=== PATIENT | male | born 1950 | race Caucasian/White ===

== ENCOUNTER 2022-07-07 14:17 | Observation (INO) | payer OTHER, MEDICARE ==
--- OUTSIDE RECORDS SUMMARY | 2022-07-07 14:22 | XMS REPORT | Continuity of Care Document ---
:1950 Author Organization [facility] t Address [address] [place] [address] Dr. Norie[address] [place] [address] Care Team Providers Name Role Phone Rohan Ge Rubin Primary Care Physician BESSIE COMBS Attending Clinician Unavailable ANAHY CROSS Attending Clinician Unavailable STEFF NGO Attending Clinician Unavailable SEUN FIGUEROA Attending Clinician Unavailable Praveen Roland MD Attending Clinician Jose Juarez MD Attending Clinician Phani Cowan Attending Clinician Jose Juarez Attending Clinician RUSSELL AKINS Attending Clinician Unavailable MICHAEL SHAH Attending Clinician Unavailable Sophia_Sonu Attending Clinician Unavailable Quincy Cortes Attending Clinician [phone] Loni Gonsales Attending Clinician Provider, [facility] Attending Clinician Unavailable LONI BATISTA Attending Clinician Unavailable Doctor Unassigned, [place] Attending Clinician Unavailable JOSE JUAREZ M.D. Attending Clinician Unavailable HEIDY GONZALEZ M.D. Attending Clinician Unavailable ELIEL GONZALEZ M.D. Attending Clinician Unavailable Sophia_Sonu Admitting Clinician Unavailable Payers Payer Name Policy Type Policy Number Effective Date Expiration Date Eloina baugh [facility] MEDICARE [id number] 2020 SUPPLEMENT 00:00:00 MEDICARE PART B [id number] 2019 2019 00:00:00 00:00:00 MEDICARE PART A [id number] 2014 \T\ B 00:00:00 [facility] [id number] 2021 MEDICARE 00:00:00 SUPPLEMENT [place] [id number] 2020 HEALTHCARE/AARP 00:00:00 [place]IC[place]: [id number] 2014 [employer] 00:00:00 [facility] [id number] 2020 OPTIONS (MEDICARE 00:00:00 SUPPLEMENT) Problems Condition Condition Condition Status Onset Resolution Last Treating Co mments Source Name Details Category Date Date Treatment Clinician Date Rhegmatoge Rhegmatoge Disease Active 2021-07 Overview : [facility] nous nous 2-07 [facility] retinal retinal 00:00: g of this detachment detachment 00 note of right of right might be eye eye different from the original. Hx of mac-off RRD repaired 10/[address] Ngo Last Assessmen t & Plan: Formattin g of this note might be different from the original. Stable today on optos/DFE Upcoming appt with Dr. Ngo Adrenal Adrenal Disease Active UT adenoma, adenoma, 8-30 Health right right 00:00: 00 Grief Grief Disease Active UT reaction reaction 5-05 Health 00:00: 00 Wheezing Wheezing Disease Active UT 3-18 Health 00:00: 00 Cough Cough Disease Active UT 3-18 Health 00:00: 00 Anesthesia Anesthesia Disease Active U T of skin of skin 3-18 Health 00:00: 00 Abnormal Abnormal Disease Active UT chest chest 3-18 Health x-ray x-ray 00:00: 00 Ptosis of Ptosis of Disease Active 2020-07 Last UT both both 2-06 Assessmen Health eyelids eyelids 00:00: t & Plan: 00 Formattin g of this note might be different from the original. Refer to garret ptosis / bleph Floppy Floppy Disease Active 2020-07 Last UT eyelid eyelid 2-06 Assessmen Health syndrome syndrome 00:00: t & Plan: 00 Formattin g of this note might be different from the original. Has had sleep apnea diagnosed but is not being treated, d/w pt importanc e of treating sleep apnea for cardiovas cular health he will d/w his PCPContin ue tears, add overnight ointment; if that isn't enough can trial eye burgos/m oisture chamber Pseudophak Pseudophak Disease Active 2020-07 Last U T ia, both ia, both 2-06 Assessmen Hea lth eyes eyes 00:00: t & Plan: 00 Formattin g of this note might be different from the original. 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 01-21 Health 00:00: 00 Low back Low back Disease Active UT pain pain 612 Health 00:00: 00 Left foot Left foot Disease Active UT drop drop 612 Health 00:00: 00 Spinal Spinal Disease Active UT stenosis stenosis 612 Health of lumbar of lumbar 00:00: region region 00 without without neurogenic neurogenic claudicati claudicati on on Scoliosis Scoliosis Disease Active UT 6-12 Health 00:00: 00 Lumbar Lumbar Disease Active 2016-07 UT radiculopa radiculopa 206 He alth thy thy 00:00: 00 Numbness Numbness Disease Active 2016-07 UT and and 2-06 Health tingling tingling 00:00: 00 Spinal Spinal Problem Active 2021-12-05 Willie kang stenosis stenosis 11-25 03:30:39 l in in 00:00: [place] cervical cervical 00 region region (disorder) (disorder) Active 11/26/2015 Problem 12/05/2021 [facility] [place] Apnea Apnea Disease Active UT 07-03 Health 00:00: 00 No known No known Disease Unive rs active active ity of problems problems [facility] History of History of Problem Resolve UT hyperlipid hyperlipid d Ph ysici emia emia ans History of History of Problem Resolve UT hypertensi hypertensi d Ph ysici on on ans Leg Leg Problem Active UT numbness numbness Physic i ans Degenerati Degenerati Problem Active U T ve ve Physici scoliosis scoliosis ans Dream Dream Problem Active UT enactment enactment Phys ici behavior behavior ans Severe Severe Problem Active UT obstructiv obstructiv Ph ysici e sleep e sleep ans apnea apnea Anxiety Anxiety Problem Resolve 2021-12-05 M emoria (finding) (finding) d 03:30:39 l Resolved Иван Problem 12/05/2021 [facility] Hypertensi Hypertens Problem Active 2021-12-05 Memoria ve rachael 03:30:39 l disorder, disorder, Herm marcin systemic systemic arterial arterial (disorder) (disorder) Active Problem 12/05/2021 [facility] [place] Hyperlipid Hyperlipi Problem Active 2021-12-05 Memoria emia demia 03:30:39 l (disorder) (disorder) He rmann Active Problem 12/05/2021 [facility] [place] Gastroesop Gastroeso Problem Active 2021-12-05 Memoria hageal phageal 03:30:39 l reflux reflux [place] disease disease (disorder) (disorder) Active Problem 12/05/2021 [facility] MARCELL [place] Carpal Carpal Problem Active 2021-12-05 Willie kang tunnel tunnel 03:30:39 l syndrome syndrome Jose n (disorder) (disorder) Active Problem 12/05/2021 [facility] [place] Smoker Smoker Problem Active 2021-12-05 Willie kang (finding) (finding) 03:30:39 l Active [place] Problem 12/05/2021 [facility] Numbness Numbness Problem Active 2021-12-05 Memoria of hand of hand 03:30:39 l (finding) (finding) Herm marcin Active Problem 12/05/2021 Bilateral [facility] MARCELL [place] Finding Finding Problem Active 2021-12-05 M emoria relating relating 03:30:39 l to moist to moist Jose n tobacco tobacco use use (finding) (finding) Active Problem 12/05/2021 [facility] [place] Spinal Spinal Problem Active 2021-12-05 Willie kang stenosis stenosis 03:30:39 l of lumbar of lumbar Herm marcin region region (disorder) (disorder) Active [facility] [place] Foot-drop Foot-drop Problem Active 2021-12-05 Memoria (finding) (finding) 03:30:39 l Active [place] Problem 12/05/2021 [facility] 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 detachment detachment 03:30:39 l (disorder) (disorder) He rmann Active Problem 12/05/2021 [facility] R91.1 - R91.1 - Diagnosis Active 2021-11-09 Memoria SOLITARY SOLITARY 14:36:00 l PULMONARY PULMONARY Herm marcin NODULE NODULE R05.9 R05.9 Active [facility] [place] Allergies, Adverse Reactions, Alerts Allergy Allergy Status Severity Reaction(s) Onset Inactive Treating Comm ents Source Name Type Date Date Clinician Penicill Propensi Active Unknown 2020-07 UT ins ty to 2-06 Health adverse 00:00: reaction 00 s Penicill Propensi Active Rash Univer s ins ty to 6-16 ity of adverse 00:00: [place] reaction 00 Medical s Branch PENICILL Drug Active Rash [facility] INS Class 6-16 ity of 00:00: [place] 00 Medical Branch Penicill Allergy Active Other UT ins to drug Physici (finding ans ) PENICILL Allergy Active [place] INS to [place] substanc Urology e penicill penicill Active Mild Memori a ins ins l [place] NO KNOWN Drug Active Univers ALLERGIE Class ity of S [place] [facility] Family History Family Member Diagnosis Comments Start Date Stop Date Source Mother Family history of [facility] Physicians Mother Family history of [facility] Phys icians cerebrovascular accident (CVA) Father Family history of malignant [facility] Physicians neoplasm Father Family history of [facility] Physicians Social History Social Habit Start Date Stop Date Quantity Comments Source History of tobacco Snuff User [facility] use Exposure to 2022-06-13 2022-06-23 Not sure [facility] SARS-CoV-2 (event) 00:00:00 09:12:00 Alcohol intake 2022-06-23 2022-06-23 2.86 /d [facility] 00:00:00 00:00:00 Tobacco use and 2022-03-01 2022-03-01 User of smokeless [facility] exposure 00:00:00 00:00:00 tobacco Cigarette 2021-11-04 2021-11-04 [facility] pack-years 00:00:00 00:00:00 Social History 2014-08-01 2014-08-01 [facility] Mikey sosa 20:41:29 20:41:29 Sex Ass[birth year] At [birth year] M [facility] 00:00:00 00:00:00 Smoking Status Start Date Stop Date Source Tobacco smoking consumption [facility] ealth unknown Ex-smoker (finding) [facility] Never Smoker [place] Milagro Verdugo agustina Occasional tobacco smoker 2022-03-01 00:00:00 [facility] Smokes tobacco daily 2021-11-04 00:00:00 [facility] Medications Ordered Filled Start Stop Current Ordering Indication Dosage Frequency Signature Comments Components Source Medication Medication Date Date Medication? Clinician (SIG) Name Name tamsulosin 2021-07 Yes .4mg QD Take 0.4 UT (Flomax) 2-22 mg by Health 0.4 MG 24 09:22: mouth 1 hr capsule 19 (one) time each day. citalopram 2021-07 Yes QD Take by UT (CeleXA) 20 2-22 mouth 1 Healt h MG tablet 09:22: (one) time 19 each day. methocarbam 2021-07 Yes 500mg Q.25D Take 500 UT ol 2-22 mg by Health (Robaxin) 09:22: mouth 4 500 MG 19 (four) tablet times a day. tamsulosin 2021-07 Yes .4mg QD Take 0.4 UT (Flomax) 2-07 mg by Health 0.4 MG 24 10:11: mouth 1 hr capsule 45 (one) time each day. citalopram 2021-07 Yes QD Take by UT (CeleXA) 20 2-07 mouth 1 Healt h MG tablet 10:11: (one) time 45 each day. methocarbam 2021-07 Yes 500mg Q.25D Take 500 UT ol 2-07 mg by Health (Robaxin) 10:11: mouth 4 500 MG 45 (four) tablet times a day. tamsulosin Yes .4mg QD Take 0.4 UT (Flomax) 8-30 mg by Health 0.4 MG 24 08:50: mouth 1 hr capsule 44 (one) time each day. citalopram 2021-0 Yes QD Take by UT (CeleXA) 20 8-30 mouth 1 Healt h MG tablet 08:50: (one) time 44 each day. methocarbam 2022-0 Yes 500mg Q.25D Take 500 UT ol 8-30 mg by Health (Robaxin) 08:50: mouth 4 500 MG 44 (four) tablet times a day. omeprazole 2022-0 2022- No 10mg QD Take 10 mg UT (PriLOSEC) 5-05 05-05 by mouth [address] He al[address] 17:17: 00:00 (one) time capsule 24 :00 each day. Do not crush or chew. lovastatin 2022-0 2022- No 10mg Take 10 mg UT (Mevacor) 5-05 05-05 by mouth Healt h 10 MG 17:17: 00:00 every tablet 21 :00 night. lisinopril 2022-0 2022- No 10mg QD Take 10 mg UT 10 MG 5-05 05-05 by mouth 1 Health tablet 17:17: 00:00 (one) time 18 :00 each day. gabapentin 2022-0 2022- No [id number] Take by UT (Neurontin) 5-05 05-05 [id number] mouth 3 Health 250 MG/5ML 17:17: 00:00 3D (three) solution 18 :00 times a day. tamsulosin 2022-0 Yes .4mg QD Take 0.4 UT (Flomax) 5-05 mg by Health 0.4 MG 24 13:49: mouth 1 hr capsule 43 (one) time each day. citalopram 2022-0 Yes 10mg QD Take 10 mg U T (CeleXA) 10 5-05 by mouth 1 He alth MG/5ML 13:49: (one) time solution 43 each day. methocarbam 2022-0 Yes 500mg Q.25D Take 500 UT ol 5-05 mg by Health (Robaxin) 13:49: mouth 4 500 MG 43 (four) tablet times a day. tamsulosin 2022-0 Yes .4mg QD Take 0.4 UT (Flomax) 5-05 mg by Health 0.4 MG 24 13:49: mouth 1 hr capsule 43 (one) time each day. citalopram 2022-0 Yes 10mg QD Take 10 mg U T (CeleXA) 10 5-05 by mouth 1 He alth MG/5ML 13:49: (one) time solution 43 each day. methocarbam 2022-0 Yes 500mg Q.25D Take 500 UT ol 5-05 mg by Health (Robaxin) 13:49: mouth 4 500 MG 43 (four) tablet times a day. tamsulosin 2022-0 Yes .4mg QD Take 0.4 UT (Flomax) 5-05 mg by Health 0.4 MG 24 13:49: mouth 1 hr capsule 43 (one) time each day. citalopram 2022-0 Yes 10mg QD Take 10 mg U T (CeleXA) 10 5-05 by mouth 1 He alth MG/5ML 13:49: (one) time solution 43 each day. methocarbam 2022-0 Yes 500mg Q.25D Take 500 UT ol 5-05 mg by Health (Robaxin) 13:49: mouth 4 500 MG 43 (four) tablet times a day. tamsulosin 2022-0 Yes .4mg QD Take 0.4 UT (Flomax) 5-05 mg by Health 0.4 MG 24 13:49: mouth 1 hr capsule 43 (one) time each day. citalopram 2022-0 Yes 10mg QD Take 10 mg U T (CeleXA) 10 5-05 by mouth 1 He alth MG/5ML 13:49: (one) time solution 43 each day. methocarbam 2022-0 Yes 500mg Q.25D Take 500 UT ol 5-05 mg by Health (Robaxin) 13:49: mouth 4 500 MG 43 (four) tablet times a day. omeprazole 2022-0 Yes UT (PriLOSEC) 2-[address] 00:00: capsule 00 lovastatin 2022-0 Yes UT (Mevacor) 2-13 Health 20 MG 00:00: tablet 00 lisinopril 2022-0 Yes UT 20 MG 2-13 Health tablet 00:00: 00 omeprazole 2022-0 Yes UT (PriLOSEC) 2-[address] 00:00: capsule 00 lovastatin 2022-0 Yes UT (Mevacor) 2-13 Health 20 MG 00:00: tablet 00 lisinopril 2022-0 Yes UT 20 MG 2-13 Health tablet 00:00: 00 omeprazole 2022-0 Yes UT (PriLOSEC) 2-[address] 00:00: capsule 00 lovastatin 2021-0 Yes UT (Mevacor) 2-13 Health 20 MG 00:00: tablet 00 lisinopril 2021-0 Yes UT 20 MG 2-13 Health tablet 00:00: 00 omeprazole 2-0 Yes UT (PriLOSEC) 2-[address] 00:00: capsule 00 lovastatin 2021-0 Yes UT (Mevacor) 2-13 Health 20 MG 00:00: tablet 00 lisinopril 2021-0 Yes UT 20 MG 2-13 Health tablet 00:00: 00 omeprazole 2-0 Yes UT (PriLOSEC) 2-[address] 00:00: capsule 00 lovastatin 2021-0 Yes UT (Mevacor) 2-13 Health 20 MG 00:00: tablet 00 lisinopril 2-0 Yes UT 20 MG 2-13 Health tablet 00:00: 00 omeprazole 2-0 Yes UT (PriLOSEC) 2-[address] 00:00: capsule 00 lovastatin 2021-0 Yes UT (Mevacor) 2-13 Health 20 MG 00:00: tablet 00 lisinopril 2021-0 Yes UT 20 MG 2-13 Health tablet 00:00: 00 omeprazole 2-0 Yes UT (PriLOSEC) 2-[address] 00:00: capsule 00 lovastatin 2-0 Yes UT (Mevacor) 2-13 Health 20 MG 00:00: tablet 00 lisinopril 2-0 Yes UT 20 MG 2-13 Health tablet 00:00: 00 citalopram 2020-07 Yes 10mg QD Take 10 mg U T (CeleXA) 10 2-06 by mouth 1 He alth MG/5ML 09:17: (one) time solution 45 each day. methocarbam 2020-07 Yes 500mg Q.25D Take 500 UT ol 2-06 mg by Health (Robaxin) 09:17: mouth 4 500 MG 45 (four) tablet times a day. omeprazole 2020-07 Yes 10mg QD Take 10 mg U T (PriLOSEC) 2-06 by mouth 1 Hea lth [address] 09:17: (one) time capsule 45 each day. Do not crush or chew. gabapentin 2020-07 Yes Q.[id number] Take by UT (Neurontin) 2- [id number] mouth 3 Health 250 MG/5ML 09:13: 3D (three) solution 08 times a day. lovastatin 2020-07 Yes 10mg Take 10 mg U T (Mevacor) 2-06 by mouth Health 10 MG 09:13: every tablet 08 night. tamsulosin 2020-07 Yes QD Take by UT (Flomax) 2-06 mouth 1 Health 0.4 MG 24 09:13: (one) time hr capsule 08 each day. lisinopril 2020-07 Yes 10mg QD Take 10 mg U T 10 MG 2-06 by mouth 1 Health tablet 09:13: (one) time 07 each day. gabapentin 2020-07 Yes UT (Neurontin) 07-03 Health 300 MG 00:00: capsule 00 gabapentin 2020-07 Yes UT (Neurontin) 07-03 Health 300 MG 00:00: capsule 00 gabapentin 2020-07 Yes UT (Neurontin) 07-03 Health 300 MG 00:00: capsule 00 gabapentin 2020-07 Yes UT (Neurontin) 07-03 Health 300 MG 00:00: capsule 00 gabapentin 2020-07 Yes UT (Neurontin) 07-03 Health 300 MG 00:00: capsule 00 gabapentin 2020-07 Yes UT (Neurontin) 07-03 Health 300 MG 00:00: capsule 00 gabapentin 2020-07 Yes UT (Neurontin) 07-03 Health 300 MG 00:00: capsule 00 gabapentin 2020-07 Yes See Memoria 300 mg oral 0-05 Instructio l capsule 13:27: ns, TAKE 1 Herm marcin 00 CAPSULE BY MOUTH TWICE DAILY, # 180 unknown unit, 3 Refill(s), Pharmacy: [facility], 175.26, cm, 12/02/20 9:31:00 CDT, Height, 96.364, kg, 12/02/20 9:31:00 CDT, Weight albuterol Yes [id number] 2{puff} Inhale 2 Univers 90 6-16 Puffs ity of mcg/actuati 00:00: every 6 [place] as on inhaler 00 (six) Medical hours as Branch needed for Wheezing. benzonatate Yes [id number] 100mg Take 1 Univers (TESSALON 6-16 capsule by itglenda of ELIOXdynia) 100 00:00: mouth 3 [place] as mg capsule 00 (three) Medica l times Branch daily. albuterol Yes [id number] 2{puff} Inhale 2 Univers 90 6-16 Puffs ity of mcg/actuati 00:00: every 6 [place] as on inhaler 00 (six) Medical hours as Branch needed for Wheezing. benzonatate Yes [id number] 100mg Take 1 Univers (TESSALON 6-16 capsule by itglenda of ELIOXdynia) 100 00:00: mouth 3 [place] as mg capsule 00 (three) Medica l times Branch daily. albuterol Yes [id number] 2{puff} Inhale 2 Univers 90 6-16 Puffs ity of mcg/actuati 00:00: every 6 [place] as on inhaler 00 (six) Medical hours as Branch needed for Wheezing. benzonatate Yes [id number] 100mg Take 1 Univers (TESSALON 6-16 capsule by itglenda of FELICITAS) 100 00:00: mouth 3 [place] as mg capsule 00 (three) Medica l times Branch daily. albuterol Yes [id number] 2{puff} Inhale 2 Univers 90 6-16 Puffs ity of mcg/actuati 00:00: every 6 [place] as on inhaler 00 (six) Medical hours as Branch needed for Wheezing. benzonatate Yes [id number] 100mg Take 1 Univers (TESSALON 6-16 capsule by [place]) 100 00:00: mouth 3 [place] as mg capsule 00 (three) Medica l times Branch daily. benzonatate 2021- No 100mg Take 100 UT (Tessalon) 6-16 05-05 mg by Health 100 MG 00:00: 00:00 mouth. capsule 00 :00 albuterol 2021- No UT 108 (90 6-16 05-05 Health Base) 00:00: 00:00 MCG/ACT 00 :00 inhaler doxycycline 2020-0 2020- No [id number] 100mg Take 1 Univers hyclate 100 6-16 06-24 tablet by it y of mg tablet 00:00: 04:59 mouth 2 [place] 00 :00 (two) Medical times [place] daily for 7 days. doxycycline 0 1- No [id number] 100mg Take 1 Univers hyclate 100 6-16 06-24 tablet by it y of mg tablet 00:00: 04:59 mouth 2 [place] 00 :00 (two) Medical times [place] daily for 7 days. citalopram 0 Yes Univers 20 mg 5-26 ity of tablet 00:00: [facility] lisinopriL 2020-0 Yes Univers 20 mg 5-26 ity of tablet 00:00: [address] lovastatin 2020-0 Yes Univers 20 mg 5-26 ity of tablet 00:00: [address] omeprazole 2020-0 Yes Univers 20 mg 5-26 ity of capsule 00:00: [address] tamsulosin 0 Yes Univers 0.4 mg 24 5-26 ity of hr capsule 00:00: [address] citalopram 2020-0 Yes Univers 20 mg 5-26 ity of tablet 00:00: [address] lisinopriL 2020-0 Yes Univers 20 mg 5-26 ity of tablet 00:00: [address] lovastatin 2020-0 Yes Univers 20 mg 5-26 ity of tablet 00:00: [address] omeprazole 2020-0 Yes Univers 20 mg 5-26 ity of capsule 00:00: [address] tamsulosin 2020-0 Yes Univers 0.4 mg 24 5-26 ity of hr capsule 00:00: [address] citalopram 2020-0 Yes Univers 20 mg 5-26 ity of tablet 00:00: [address] lisinopriL 2020-0 Yes Univers 20 mg 5-26 ity of tablet 00:00: [address] lovastatin 2020-0 Yes Univers 20 mg 5-26 ity of tablet 00:00: [address] omeprazole 2020-0 Yes Univers 20 mg 5-26 ity of capsule 00:00: [address] tamsulosin 2020-0 Yes Univers 0.4 mg 24 5-26 ity of hr capsule 00:00: [address] citalopram 2020-0 Yes Univers 20 mg 5-26 ity of tablet 00:00: [address] lisinopriL 2020-0 Yes Univers 20 mg 5-26 ity of tablet 00:00: [address] lovastatin 2020-0 Yes Univers 20 mg 5-26 ity of tablet 00:00: [address] omeprazole 2020-0 Yes Univers 20 mg 5-26 ity of capsule 00:00: [address] tamsulosin 2020-0 Yes Univers 0.4 mg 24 5-26 ity of hr capsule 00:00: [address] gabapentin 2020-0 Yes Univers 300 mg 5-23 ity of capsule 00:00: [address] gabapentin 2020-0 Yes Univers 300 mg 5-23 ity of capsule 00:00: [address] gabapentin 2020-0 Yes Univers 300 mg 5-23 ity of capsule 00:00: [address] gabapentin 2020-0 Yes Univers 300 mg 5-23 ity of capsule 00:00: [address] methocarbam Yes 500 mg, Mem oria ol 500 mg 6-02 PO, l oral tablet 14:13: Bedtime, X Иван 00 90 day, # 90 tab, 1 Refill(s), Pharmacy: [facility] gabapentin Yes 300 mg, Willie kang 300 MG Oral 6-02 PO, BID, # l Capsule 14:13: 180 cap, 1 Herm marcin 00 Refill(s), Pharmacy: [facility] gabapentin 2018-07 No 300 mg, Willie kang 300 MG Oral 0-09 PO, BID, # l Capsule 12:52: 180 cap, 2 Herm marcin 15 Refill(s), Pharmacy: [facility] methocarbam 2018-07 No 500 mg, Mem oria ol 500 mg 0-09 PO, l oral tablet 12:52: Bedtime, X [place] 07 90 day, # 90 tab, 2 Refill(s), Pharmacy: [facility] methocarbam No 500 mg, Mem oria ol 500 mg 9-06 PO, l oral tablet 16:02: Bedtime, X [place] 12 90 day, # 90 tab, 2 Refill(s), Pharmacy: [facility] gabapentin No 300 mg, Willie kang 300 MG Oral 9-06 PO, BID, X l Capsule 16:01: 90 day, # Nina nn 59 180 cap, 2 Refill(s), Pharmacy: [facility] gabapentin 2019-0 No 300 mg, Willie kang 300 MG Oral 6-07 PO, BID, X l Capsule 14:04: 30 day, # Nina nn 00 60 cap, 8 Refill(s), Pharmacy: [place] [id number] methocarbam 2019-0 No 500 mg, Mem oria ol 500 mg 6-07 PO, l oral tablet 14:04: Bedtime, X [place] 00 30 day, # 30 tab, 3 Refill(s), Pharmacy: [place] [id number] tamsulosin 2018-0 Yes 0.4 mg, Willie kang 5-30 PO, Daily, l 14:15: 0 Refill(s) Methocarbam 2019-0 Yes 500 mg, Mem oria ol 5-30 PO, PRN l 14:08: gabapentin 2019-0 Yes 300 mg, Willie kang 5-30 PO, PRN, 0 l 14:08: Refill(s) Lisinopril Lisinopril 0 Yes 1 QD TAKE 1 UT 20 MG Oral 20 MG Oral 2-12 TABLET P hysici Tablet Tablet 00:00: DAILY ans 00 albuterol albuterol No albuterol [place] sulfate HFA sulfate HFA sulfate [place] 90 90 HFA 90 Urology mcg/actuati mcg/actuati mcg/actuat on aerosol on aerosol ion inhaler inhaler aerosol inhaler citalopram citalopram No citalopram [place] 20 mg 20 mg 20 mg [place] tablet tablet tablet Urology doxycycline doxycycline No doxycyclin [place] hyclate 100 hyclate 100 e hyclate [place] mg tablet mg tablet 100 mg Uro logy tablet gabapentin gabapentin No gabapentin [place] 300 mg 300 mg 300 mg [place] capsule capsule capsule Urolog y lisinopril lisinopril No lisinopril [place] 20 mg 20 mg 20 mg [place] tablet tablet tablet Urology lovastatin lovastatin No lovastatin [place] 20 mg 20 mg 20 mg [place] tablet tablet tablet Urology omeprazole omeprazole No omeprazole [place] 20 mg 20 mg 20 mg [place] capsule,del capsule,del capsule,de Urology ayed ayed layed release release release tamsulosin tamsulosin No tamsulosin [place] 0.4 mg 0.4 mg 0.4 mg [place] capsule capsule capsule Urolog y Immunizations Ordered Immunization Filled Immunization Date Status Commen ts Source Name Name Influenza, 2021-08-10 [facility], 00:00:00 quadrivalent Influenza, 2021-08-10 Completed [facility] injectable, 00:00:00 quadrivalent Influenza, 2021-08-10 Completed [facility] injectable, 00:00:00 quadrivalent Influenza, 2021-08-10 Completed [facility] injectable, 00:00:00 quadrivalent Influenza, 2021-08-10 Completed [facility] injectable, 00:00:00 quadrivalent Influenza, 2021-08-10 Completed [facility] injectable, 00:00:00 quadrivalent Influenza, 2021-08-10 Completed [facility] injectable, 00:00:00 quadrivalent COVID-19 Moderna 18 2021-03-03 Completed [facility] alth & Over Vaccination 00:00:00 COVID-19 Moderna 18 2021-03-03 Completed [facility] alth & Over Vaccination 00:00:00 COVID-19 Moderna 18 2021-03-03 Completed UT [facility] alth & Over Vaccination 00:00:00 COVID-19 Moderna 18 2021-03-03 Completed [facility] alth & Over Vaccination 00:00:00 COVID-19 Moderna 12 2021-03-03 Completed [facility] alth & Over Vaccination 00:00:00 (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) COVID-19 Moderna 12 2021-03-03 Completed UT He alth & Over Vaccination 00:00:00 (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) COVID-19 Moderna 12 2021-03-03 Completed UT He alth & Over Vaccination 00:00:00 (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) COVID-19, mRNA, COVID-19, mRNA, 2021-03-03 Completed [place] LNP-S, PF, 100 LNP-S, PF, 100 00:00:00 Urolog y mcg/0.5 mL dose mcg/0.5 mL dose [id number] 2020-08-24 Completed Willie rial [id number] 19:07:55 Herm marcin <sup>1, 2</sup> [id number] 2020-08-24 Completed Willie rial [id number] 00:00:00 Herm marcin [id number] 2020-07-25 Completed Willie riaaurelio [id number] 00:00:00 Herm marcin Vital Signs Vital Name Observation Time Observation Value Comments Source Systolic blood 2022-03-01 126 mm[Hg] [facility] pressure 13:51:00 Diastolic blood 2022-03-01 77 mm[Hg] [facility] pressure 13:51:00 Heart rate 2022-03-01 66 /min [facility] 13:51:00 Body temperature 2022-03-[address] [facility] 13:51:00 Body weight 2022-03-01 96.435 [facility] 13:51:00 BMI 2022-03-01 30.95 kg/m2 [facility] 13:51:00 Systolic blood 2021-11-04 128 mm[Hg] [facility] pressure 18:51:00 Diastolic blood 2021-11-04 84 mm[Hg] [facility] pressure 18:51:00 Heart rate 2021-11-04 74 /min [facility] 18:51:00 Body temperature 2021-11-[address] [facility] 18:51:00 Body weight 2021-11-04 96.163 kg [facility] 18:51:00 BMI 2021-11-04 30.86 kg/m2 [facility] 18:51:00 Oxygen saturation 2021-11-04 96 /min [facility] in Arterial blood 18:51:00 by Pulse oximetry BP Diastolic 2021-05-05 78 mm[Hg] [place] [facility] 00:00:00 Urology Height 2021-05-05 69 [in_i] [facility] 00:00:00 Urology BMI (Body Mass 2021-05-05 31 [facility]2 [facility] Urology BP Systolic 2021-05-05 145 mm[Hg] [facility] 00:00:00 Urology Body Weight 2021-05-05 210 [lb_av] [place] [facility] 00:00:00 Urology Systolic blood 2020-12-16 127 mm[Hg] [facility] 15:55:00 [facility] Diastolic blood 2020-12-16 72 mm[Hg] [facility] f pressure 15:55:00 [facility] Heart rate 2020-12-16 83 /min [facility] 15:54:00 [facility] Body temperature 2020-12-[address] [facility] 15:54:00 [facility] Respiratory rate 2020-12-16 18 /min [facility] 15:54:00 [facility] Body height 2020-12-[address] [facility] 15:54:00 [facility] Body weight 2020-12-[address] [facility] 15:54:00 [facility] BMI 2020-12-16 31.00 kg/m2 [facility] 15:54:00 [facility] Oxygen saturation 2020-12-16 96 /min [facility] in Arterial blood 15:54:00 [facility] by Pulse oximetry [place] Systolic (mm Hg) 2021-12-02 [facility] 13[facility]00 Diastolic (mm Hg) 2021-12-02 [facility] 13:55:00 Heart Rate 2021-12-02 [facility] 13:55:00 Respitory Rate 2021-12-02 [facility] 13:55:00 Height 2021-12-02 175.26 cm [facility] 13:55:00 Weight 2021-12-02 [facility] 13:55:00 BMI Calculated 2021-12-02 [facility] 13:55:00 Systolic (mm Hg) 2020-12-02 [facility] 14:18:00 Diastolic (mm Hg) 2020-12-02 [facility] 14:18:00 Heart Rate 2020-12-02 [facility] 14:18:00 Respitory Rate 2020-12-02 [facility] 14:18:00 Height 2020-12-02 175.26 cm [facility] 14:18:00 Weight 2020-12-02 [facility] 14:18:00 BMI Calculated 2020-12-02 [facility] 14:18:00 Systolic (mm Hg) 2019-12-03 [facility] 14:01:00 Diastolic (mm Hg) 2019-12-03 [facility] 14:01:00 Heart Rate 2019-12-03 [facility] 14:01:00 Respitory Rate 2019-12-03 [facility] 14:01:00 Height 2019-12-03 177.8 cm [facility] 14:01:00 Weight 2019-12-03 [facility] 14:01:00 BMI Calculated 2019-12-03 [facility] 14:01:00 BP Systolic 2019-01-21 142 mm[Hg] Location: RUE; [facility] 14:41:00 Position: Sitting BP Diastolic 2019-01-21 81 mm[Hg] Location: RUE; [facility] 14:41:00 Position: Sitting Height 2019-01-21 69.5 [in_us] [facility] 14:41:00 Weight 2019-01-21 214.125 [lb_av] [facility] 14:41:00 Body Mass Index 2019-01-21 31.17 kg/m2 [facility] Calculated 14:41:00 Temperature 2019-01-21 98.1 [degF] Method: Oral [facility] 14:41:00 Heart Rate 2019-01-21 69 /min Location: R [facility] 14:41:00 Brachial Artery; O2 SAT 2019-01-21 99 % Source: RA [facility] 14:41:00 BP Systolic 2018-12-03 136 mm[Hg] Location: RUE; [facility] 14:30:00 Position: Sitting BP Diastolic 2018-12-03 73 mm[Hg] Location: RUE; [facility] 14:30:00 Position: Sitting Height 2018-12-03 69.5 [in_us] [facility] 14:30:00 Weight 2018-12-03 215.375 [lb_av] [facility] 14:30:00 Body Mass Index 2018-12-03 31.35 kg/m2 [facility] Calculated 14:30:00 Temperature 2018-12-03 98.3 [degF] Method: Oral [facility] 14:30:00 Heart Rate 2018-12-03 85 /min Location: R [facility] 14:30:00 Brachial Artery; O2 SAT 2018-12-03 97 % Source: RA [facility] 14:30:00 Systolic (mm Hg) 2018-11-29 [facility] 13:58:00 Diastolic (mm Hg) 2018-11-29 [facility] 13:58:00 Heart Rate 2018-11-29 [facility] 13:58:00 Weight 2018-11-29 [facility] 13:58:00 Height 2018-11-29 175.26 cm [facility] 13:58:00 Respitory Rate 2018-11-29 [facility] 13:58:00 BMI Calculated 2018-11-29 [facility] 13:58:00 BP Systolic 2018-09-28 118 mm[Hg] Location: RUE; [facility] 15:20:00 Position: Sitting BP Diastolic 2018-09-28 70 mm[Hg] Location: RUE; [facility] 15:20:00 Position: Sitting Height 2018-09-28 69.5 [in_us] [facility] 15:20:00 Weight 2018-09-28 212.25 [lb_av] [facility] 15:20:00 Body Mass Index 2018-09-28 30.89 kg/m2 [facility] Calculated 15:20:00 Temperature 2018-09-28 98.5 [degF] Method: Oral [facility] 15:20:00 Heart Rate 2018-09-28 73 /min Location: R [facility] 15:20:00 Brachial Artery; O2 SAT 2018-09-28 97 % Source: [facility] 15:20:00 BP Systolic 2018-08-14 144 mm[Hg] Location: RUE; [facility] 14:20:00 Position: Sitting BP Diastolic 2018-08-14 80 mm[Hg] Location: RUE; [facility] 14:20:00 Position: Sitting Height 2018-08-14 69.5 [in_us] [facility] 14:20:00 Weight 2018-08-14 211 [lb_av] [facility] 14:20:00 Body Mass Index 2018-08-14 30.71 kg/m2 [facility] Calculated 14:20:00 Temperature 2018-08-14 98.3 [degF] Method: Oral [facility] 14:20:00 Heart Rate 2018-08-14 74 /min Location: R [facility] 14:20:00 Brachial Artery; O2 SAT 2018-08-14 98 % Source: RA [facility] 14:20:00 BP Systolic 2017-05-16 126 mm[Hg] Location: LUE; [facility] 08:01:00 Position: Sitting BP Diastolic 2017-05-16 77 mm[Hg] Location: LUE; [facility] 08:01:00 Position: Sitting Height 2017-05-16 69.5 [in_us] [facility] 08:01:00 Weight 2017-05-16 214 [lb_av] [facility] 08:01:00 Body Mass Index 2017-05-16 31.15 kg/m2 [facility] Calculated 08:01:00 Temperature 2017-05-16 97.5 [degF] Method: Oral [facility] 08:01:00 Heart Rate 2017-05-16 75 /min [facility] 08:01:00 Respiration Rate 2017-05-16 14 /min [facility] 08:01:00 Procedures Procedure Date / Time Performing Clinician Source Performed OCT, RETINA - OU - BOTH 2022-06-23 15:34:[facility] OCT, RETINA - OU - BOTH 2021-12-16 13:37:[facility]U - 2021-12-16 13:37:41 [facility] BOTH EYES PTOSIS VISUAL FIELD, 2021-06-21 14:40:37 Garret [facility] LIMITED - OU - BOTH EYES Ore-Ofeoluwatomi CT, abdomen + pelvis, 2021-05-05 00:00:00 [facility] w/wo contrast Urology XR CHEST 2 VW 2020-12-16 17:31:02 Loni Batista [facility] COVID-19 (MOLECULAR 2020-12-16 16:45:00 Loni Batista [facility] NUCLEIC ACID AMPLIFICATION) Polysomnography, sleep 2018-08-14 00:00:00 [facility] staging with 4+ parameters of sleep, attended by a technologist [U] XRAY THORACOLUMBAR 2017-12-12 00:00:00 [facility] SPINE, SCOLIOSIS STUDY (W/ SUPINE AND ERECT) [id number] Physical Therapy 2017-12-12 00:00:00 [facility] [[facility]] EMG 2017-06-07 00:00:00 [facility] MRI Spine lumbar wo 2017-06-07 00:00:00 [facility] contrast [id number] Diagnostic Colonoscopy 2014-07-03 00:00:00 [facility] Carpal Tunnel Surgery 2014-07-03 00:00:00 Royce Humphrey Urology Hernia Repair W/mesh 1990-07-03 00:00:00 Kirill Humphrey Urologglenda History of Carpal tunnel [facility] surgery Colonoscopy [facility] Repair of umbilical [facility] hernia Plan of Care Planned Activity Planned Date Details Comments Source Diagnostic Test 2021-05-05 cytology, urine [facility] Pending 00:00:00 [code = cytology, Urology urine] Diagnostic Test 2021-05-05 culture, urine + [facility] Pending 00:00:00 sensitivity [code = Urology culture, urine + sensitivity] Diagnostic Test 2021-05-05 urinalysis, dipstick [place] [facility] Pending 00:00:00 [code = urinalysis, Urology dipstick] Diagnostic Test 2021-05-05 PSA, total + free, [place] [facility] Pending 00:00:00 serum or plasma Urology [code = PSA, total + free, serum or plasma] Diagnostic Test 2021-05-05 unlisted lab [code = [place] [facility] Pending 00:00:00 unlisted lab] Urology Diagnostic Test 2017-07-11 [UT[facility]] EMG [code = [facility] Pending 00:00:00 [UTP] EMG] Diagnostic Test 2017-07-11 [[facility]] EMG [code = [facility] Pending 00:00:00 [UTP] EMG] Encounters Start End Encounter Admission Attending Care Care Encounter Source Date/Time Date/Time Type Type Clinicians Facility Department ID 2022-06-23 Outpatient [facility] [id number] [place] 08:34:[id number] [facility] 2022-06-15 Outpatient [facility] [id number] [place] 19:05:[id number] [facility] 2022-06-08 Outpatient [facility] [id number] [place] 09:23:[id number] [facility] 2022-06-01 Outpatient [facility] [id number] [place] 09:46:[id number] [facility] 2022-05-31 Outpatient [facility] [id number] [place] 13:51:[id number] [facility] 2021-06-21 Outpatient GARRET, [facility] [id number] [place] 09:30:23 [facility] 2021-06-21 Outpatient [facility] [id number] [place] 07:43:[address] [facility] 2021-06-07 Outpatient GARRET, [facility] [id number] [place] 10:50:51 [facility] AT[facility] 2021-05-14 Outpatient TAY [facility] [id number] [place] 08:23:17 [facility] 2022-12-22 2022-12-22 Outpatient HUBER, [facility] [id number] [place] 09:30:00 09:30:00 STEFF moody 2022-12-02 2022-12-02 Outpatient [facility] [id number] [facility] 09:15:00 09:15:00 06 aurelio Oates 2022-06-23 2022-06-23 Office HUBER, [facility] 6400 [id number] [place] 09:30:00 13:07:13 Visit STEFF ISLAS [id number] Health [id number] [id number] 2022-06-23 2022-06-23 Outpatient [facility] [id number] [place] 09:20:00 12:57:22 Health 2022-06-23 2022-06-23 Outpatient HUBER, [facility] [id number] [place] 08:15:00 08:15:00 STEFF Murillo 2022-06-08 2022-06-08 Office TAY CESILIA 6400 [id number] [place] 10:00:00 15:34:00 Visit ANAHY ISLAS [id number] Health [id number] [id number] 2022-03-31 2022-03-31 Outpatient FIGUEROA, [facility] [id number] [place] 13:00:00 13:00:00 [facility] 2022-03-01 2022-03-01 Office CESILIA Roland [id number] [place] 09:00:00 09:54:58 Visit Praveen SHEARER [id number] He alth [place] 9.2.7.2.686 MULTI [id number] SPECIALTY 2 2021-12-17 2021-12-17 Telephone CESILIA Juarez [id number] [place] 00:00:00 00:00:00 Jose SHEARER [id number] He alth [place] 9.2.7.2.686 MULTI [id number] SPECIALTY 6 2021-12-172021-12-17 Telephone CESILIA Juarez [id number] [place] 00:00:00 00:00:00 Jose SHEARER [id number] He alth [place] 9.2.7.2.686 MULTI [id number] SPECIALTY 6 2021-12-16 2021-12-16 Office Huber, [facility] 6400 [id number] [place] 08:00:00 09:10:[address] [id number] Health [id number] [id number] 2021-12-02 2021-12-03 Outpatient nullFlavo MNA [id number] [facility] 14:00:00 04:59:59 r Neurology 05 l Erika Oates 2021-12-02 2021-12-02 Outpatient CORTES CowanMISCHER MHMISCHER [id number] 09:00:00 23:59:59 Phani Delia Tejada 2021-12-02 2021-12-02 Outpatient MHIE MHIE [id number] [facility] 09:00:00 09:00:00 05 l Иван 2021-11-09 2021-11-10 Outpt Diag nullFlavo [facility] [id number] Mem[facility] 19:26:00 04:59:00 Services r [facility] 2021-11-09 2021-11-09 Outpatient Obey, MHOIP MHOIP [id number] 14:26:00 23:59:00 Jose Suhail Antoine 2021-11-04 2021-11-04 Office CESILIA Juarez [id number] [place] 13:40:00 14:26:51 Visit Jose SHEARER [id number] Bhanu mccollum [place] 9.2.7.2.686 MULTI [id number] SPECIALTY 6 2021-10-21 2021-10-21 Office Huber, [facility] 6400 [id number] [place] 09:00:00 10:17:[address] [id number] Health 9.2.7.2.686 [id number] 2021-10-07 2021-10-07 Office CESILIA Ngo 6400 [id number] [place] 08:00:00 08:15:00 Visit Steff ISLAS [id number] Health 9.2.7.2.686 [id number] 2021-09-30 2021-09-30 Office CESILIA Ngo 6400 [id number] [place] 09:45:00 15:56:50 Visit Steff ISLAS [id number] Health 9.2.7.2.686 [id number] 2021-07-09 2021-07-09 Outpatient Madonna AKINS, [facility] [id number] [facility] 13:40:00 13:56:56 RUSSELL mulligan [facility] 2021-07-09 2021-07-09 Outpatient Madonna SHAH [facility] [id number] [facility] 13:40:00 13:40:00 MICHAEL puentes [facility] 2021-06-21 2021-06-21 Office CESILIA Combs 6400 [id number] [place] 08:30:00 09:29:[address] [id number] Health atomi 9.2.7.2.686 [id number] 2021-06-21 2021-06-21 Office CESILIA Combs 6400 [id number] [place] 08:30:00 09:29:17 Visit Celestino ISLAS [id number] Health atomi 9.2.7.2.686 [id number] 2021-06-14 2021-06-14 Outpatient Goldfarb_D [facility] [id number] [place] 12:41:00 12:41:00 [id number] [facility] 2021-05-18 2021-05-18 Outpatient Goldfarb_D U [facility] [id number] [place] 09:52:00 09:52:00 [id number] [facility] 2021-05-14 2021-05-14 Outpatient Goldfarb_D [facility] [id number] [place] 10:45:00 10:45:00 [id number] [facility] 2021-05-06 2021-05-06 Outpatient Goldfarb_D HMU [facility]U [id number] [place] 11:49:00 11:49:00 [id number] [facility] 2021-05-05 2021-05-05 Outpatient Goldfarb_D [facility] [id number] [place] 10:58:00 10:58:00 [id number] [facility] 2021-05-05 2021-05-05 Quincy [facility] [place] - [id number] Mikey hale 00:00:00 00:00:00 Milagro Leslie: [address] [place], [place] [address] , Ph. 2021-05-05 2021-05-05 Outpatient Sophia, [facility] [id number] 00:00:00 00:00:00 Quincy Krishnamurthy [id number] 2021-02-15 2021-02-15 Outpatient Goldfarb_D [facility] U [id number] [place] 11:26:00 11:26:00 [id number] [facility] 2021-02-08 2021-02-08 Outpatient Goldfarb_D [facility] U [id number] [place] 10:11:00 10:11:00 [id number] [facility] 2020-12-16 2020-12-16 [facility] [id number] Univers 11:45:00 23:59:00 Encounter Loni Crocker 350.1.13.10 ity of [place] 4.2.7.2.686 [facility] [id number] [facility] [address] 2020-12-16 2020-12-16 Urgent Provider, [facility] 1.2.840.114 [id number] Univers 10:21:38 11:55:32 Care Loni Batista [id number] ity of [place] 4.2.7.2.686 Andrew as Professio [id number] [address] Office [address] 2020-12-16 2020-12-16 Outpatient R FÁTIMA, [facility] [id number] Univers 10:20:00 10:20:00 LONI ity of [facility] 2020-12-16 2020-12-16 Letter Doctor ERIC [id number] Univers 00:00:00 00:00:00 (Out) Unassigned, CHANTEL [id number] ity of [place] [facility] 4.2.7.2.686 Andrew as [id number] [address] 2020-12-16 2020-12-16 Letter Doctor ERIC [id number] [id number] Univers 00:00:00 00:00:00 (Out) Unassigned, CHANTEL 350.1.13.10 ity of [place] [facility] 4.2.7.2.686 Andrew as [id number] [address] 2020-12-02 2020-12-03 Outpatient nullFlavo MNA [id number] [facility] 14:00:00 04:59:59 r Neurology 04 l Erika Oates 2020-12-02 2020-12-02 Outpatient JONATHAN CowanSCHER CORTESMISCHER [id number] 09:00:00 23:59:59 Phani Tejada 2020-12-02 2020-12-02 Ambulatory nullFlavo MNA [id number] [facility] 14:00:00 14:00:00 Pre-Reg r Neurology 03 l Erkia Oates 2020-12-02 2020-12-02 Outpatient MHIE MHIE [id number] [facility] 09:00:00 09:00:00 04 aurelio Oates 2020-12-02 2020-12-02 Outpatient MHIE MHIE [id number] [facility] 09:00:00 09:00:00 03 aurelio Oates 2020-12-02 2020-12-02 Outpatient JONATHAN CowanSCHER MHMISCHER [id number] 09:00:00 09:00:00 Phani 03 Terrell 2019-12-03 2019-12-04 Outpatient nullFlavo MNA [id number] [facility] 14:00:00 04:59:59 r Neurology 02 aurelio [place] Иван 2019-12-03 2019-12-03 Outpatient Chapo, MHMISCHER MHMISCHER [id number] 09:00:00 23:59:59 Phani 02 Terrell 2019-12-03 2019-12-03 Outpatient MHIE MHIE [id number] [facility] 09:00:00 09:00:00 02 aurelio Oates 2019-07-04 2019-07-04 [facility] [id number] [place] 13:00:00 13:00:00 t; JOSE JUAREZ Physi ci JUSTIN, M.D. ans M.D. 2019-01-21 2019-01-21 [id number] [place] 14:40:00 14:40:00 t; JOSE JUAREZ lty Physi Stephanie Hines M.D. 2018-12-03 2018-12-03 [id number] [place] 14:40:00 14:40:00 t; JOSE JUAREZ lty - Physi Stephanie Hines M.D. 2018-11-29 2018-11-30 Outpatient nullFlavo MNA [id number] [facility] 14:00:00 04:59:59 r Neurology 01 aurelio Erika Oates 2018-11-29 2018-11-29 Outpatient Chapo, MHMISCHER MHMISCHER [id number] 09:00:00 23:59:59 Phani 01 Terrell 2018-11-29 2018-11-29 Outpatient MHIE MHIE [id number] [facility] 09:00:00 09:00:00 01 aurelio Oates 2018-09-28 2018-09-28 CESILIA [place]roy [id number] [place] 15:40:00 15:40:00 t; JOSE JUAREZ [place] [facility] JUSTIN, M.D. ans M.D. 2018-08-14 2018-08-14 CESILIA [place] [id number] [place] 14:20:00 14:20:00 t; JOSE JUAREZ [facility] Stephanie HUDSON M.D. 2017-12-12 2017-12-12 CESILIA Beaulieu [facility] [id number] [place] 11:00:00 11:00:00 t; HEIDY GONZALEZ Orthopedics Hiro grijalva M.D. 2017-11-29 2017-11-29 Outpatient [facility] [id number] [facility] 09:00:00 09:00:00 00 [place] 2017-08-08 2017-08-08 [facility] [id number] [place] 13:30:00 13:30:00 t; HEIDY GONZALEZ Physici SHAH-NAWAZ M.D. ans, M.D. 2017-07-11 2017-07-[address] [facility] [id number] [place] 14:30:00 14:30:00 t; Stephanie JULIAN ans SUUR, M.D. 2017-05-16 2017-05-16 Barbara GONZALEZ [facility] Neurology [id number] [place] 08:00:00 08:00:00 t; Stephanie JULIAN ans SUUR, M.D. Results Test Description Test Time Test Comments Results Result Comments Source COVID-19 (MOLECULAR TESTING 2020-12-17 04:19:19 NUCLEIC ACID AMPLIFICATION) Test Item Value Reference Range Interpretation Comme nts SARS-CoV-2 NAAT (test code = Not Detected Not Detected 19154-2) MARIEL (test code = MARIEL) [employer] SARS-CoV-2 Assay is a nucleic acid amplification test intended for the qualitative detection of RNA from SARS-CoV-2 from nasopharyngeal (DATA CENTER ARCHITECT) specimens. ?It is used under Emergency Use Authorization (EUA) by FDA. A positive result is indicative of the presence of SARS-CoV-2 RNA. ?Clinical correlation with patient history and other diagnostic information is necessary to determine patient infection status. A negative (Not Detected) result does not preclude SARS-CoV-2 infection. ?Clinical correlation with patient history and other diagnostic information should be used in patient management decisions. Invalid: Unable to generate a valid test result on this specimen. ?Please submit a new specimen for repeat testing if clinically indicated. Lab Interpretation (test code = Normal 04185-2) [facility] [id number] 17:42:55HISTORY: Cough for 4 weeks. TECHNIQUE: 2 PA and one lateral views of the chest are obtained. No priorchest study available for comparison. FINDINGS: Mild generalized obstructive lung disease is suspected. Smallcalcified granulomas seen in the right upper lung. Lateral view showed 9 mmnodule projected over one of the middle thoracic vertebral bodies. Minimalfibrosis noted in the lingula segment. No acute pneumonia detected. No pneumothorax or pleural effusion orpulmonary congestion. Cardiothoracic ratio of approximately 15.8/36.8 cm isconsistent with normal cardiac size. Probable small hiatal hernia. CONCLUSIONS:1. No signs of acute cardiopulmonary disease.2. 9 mm soft tissue nodule is seen visibleonly in the lateral view,projected over one of the middle thoracic vertebral bodies. Exact etiologyis uncertain, therefore, noncontrast enhanced CT scan of the chestrequested.[facility], Radiant Results InftUser - 12/16/2020 12:43 PM CDT HISTORY: Cough for 4 weeks.TECHNIQUE: 2 PA and one lateral views of the chest are obtained. No priorchest study available for comparison.FINDINGS: Mild generalized obstructive lung disease is suspected. Smallcalcified granulomas seen in the right upper lung. Lateral view showed 9 mmnodule projected over one of the middle thoracic vertebral bodies. Minimalfibrosis noted in the lingula segment.No acute pneumoniadetected. No pneumothorax or pleural effusion orpulmonary congestion. Cardiothoracic ratio of approximately 15.8/36.8 cm isconsistent with normal cardiac size. Probable small hiatal hernia.CONCLUSIONS:1. No signs of acute cardiopulmonary disease.2. 9 mm soft tissue nodule is seen visible only in the lateral view,projected over one of the middle thoracic vertebral bodies. Exact etiologyis uncertain, therefore, noncontrast enhanced CT scan of the chestrequested.[facility][U] XRAY THORACOLUMBAR SPINE, SCOLIOSIS STUDY (W/ SUPINE AND ERECT) [id number] 11:25:00Images acquired, not reported on this accession number.[facility] Sp[facility] lumbar wo contrast [id number] 10:47:00Exam: MRI lumbar spine without contrast.INDICATION: Radiculopathy. Left leg muscle atrophy, left foot numbness,bilateral leg cramps.COMPARISON: None.TECHNIQUE: Multiecho multiplanar MR sequences of the lumbar spine are obtainedwithout gadolinium.Discussion: Lowest fully formed disc will be designated as L5-S1.Rotatory leftward curvature of the lumbar spine is present.T12-L1: Annular bulge without canal stenosis or nerve root compression.Right-sided foraminal stenosis encroaching upon the exiting nerve root.L1-L2: Right foraminal disc protrusion combined with advanced right-sided facetarthropathy causes severe right foraminal stenosis compressing the exitingnerve root. No canal stenosis. Mild left foraminal stenosis.L2-L3: Annular bulge without canal stenosis. Right lateral recess stenosisencroaching upon the descending right L3 nerve root. Bilateral facetarthropathy. Bilateral foraminal stenosisencroaching upon the exiting rightnerve roots.L3-L4: Disc is collapsed. Annular bulge and advanced facet arthropathy causesevere canal stenosis compressing the cauda equina. Bilateral foraminalstenosiswith compression of the exiting right L3 nerve root. Grade 1anterolisthesis of L3 on L4.L4-L5: Disc is decreased in height. Grade 1 anterolisthesis of L4 on L5.Annular bulge and bilateral facet arthropathy encroaching upon the descendingL5 nerve roots in the lateral recesses. No canal stenosis. Bilateral foraminalstenosis, severe on the left with compression of the exiting left L4 nerveroot.L5-S1: Disc is decreased in height. Annular bulge and bilateral facetarthropathy encroach upon the descending S1 nerve roots in the lateralrecesses. No canal stenosis. 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
--- NOTE | 2022-07-07 15:03 | RAD REPORT ---
EXAM DESCRIPTION: CT - Head Brain Wo Cont - 07/07/2022 2:57 pm CLINICAL HISTORY: Syncope, recurrent Headache, drowsiness, COMPARISON: No comparisons TECHNIQUE: All CT scans are performed using dose optimization technique as appropriate and may inclu de automated exposure control or mA/KV adjustment according to patient size. FINDINGS: No intracranial hemorrhage, hydrocephalus or extra-axial fluid collection.Mild brain atrop hy.No areas of brain edema or evidence of midline shift. The paranasal sinuses and mastoids are clear. The calvarium is intact. IMPRESSION: No acute intracranial abnormality.
--- NOTE | 2022-07-07 15:09 | RAD REPORT ---
EXAM DESCRIPTION: RAD - Chest Single View - 07/07/2022 3:05 pm CLINICAL HISTORY: syncope Chest pain. COMPARISON: No comparisons FINDINGS: Portable technique limits examination quality. The lungs are grossly clear. The heart is upper limit of normal in size. No displaced fractures. IMPRESSION: No acute intrathoracic process suspected.
[2022-07-07 15:44] LABS: Absolute Lymphocytes (CBC) 0.9 K/uL (0.7-4.9); Lymphocytes % 7.1 % (15.3-44.8); MCV 90.5 fL (80-100); MPV 7.5 fL (7.6-11.3); RBC Red Blood Cell Count 4.86 M/uL (4.33-5.43)
[2022-07-07 15:45] LABS: Protime INR 1.1
[2022-07-07 16:08] LABS: Albumin 3.6 g/dL (3.4-5.0); Bilirubin Direct 0.2 mg/dL (0-0.2); Magnesium 1.9 mg/dL (1.6-2.4); Potassium 3.9 mmol/L (3.5-5.1); Protein, Total 6.8 g/dL (6.4-8.2); Thyroid Stimulating Hormone 0.628 uIU/mL (0.358-3.740); Troponin High Sensitivity 6.1 pg/mL (<58.9)
--- NOTE | 2022-07-07 16:09 | RAD REPORT ---
EXAM DESCRIPTION: US - CP - 07/07/2022 3:58 pm CLINICAL HISTORY: DIZZINESS Headache, drowsiness COMPARISON: No comparisons TECHNIQUE: Real-time sonographic evaluation of both carotid systems was performed. Doppler interroga tion was performed with waveform tracing bilaterally. FINDINGS: Normal high resistance waveforms are noted in both external carotid arteries. The common c arotid arteries and internal carotid arteries show normal low resistance waveforms. Moderate hard plaque is seen right carotid bulb. Visually this results in a 50% stenosis based NASCET criteria. Peak systolic and end diastolic velocity values and the ICA/CCA ratios are in the non-hemo dynamically significant range. Right vertebral artery nonvisualized. Forward flow seen left vertebral artery. IMPRESSION: Moderate hard plaque is seen right carotid bulb. Visually, 50% stenosis based on NASCET criteria suspected at this level. No hemodynamically significa nt stenosis evident.
[2022-07-07] MEDS ORDERED: ASPIRIN 81 MG CHEWABLE TABLET ONE (16:16)
[2022-07-07 17:17] LABS: Urine Blood 2+ (Negative); Urine Glucose Negative (Negative); Urine Protein Negative (Negative); Urine Specific Gravity 1.015 (1.005-1.030); Urine pH 6.5 (5.0-7.0)
[2022-07-07 17:37] LABS: Urine Bacteria None Seen /HPF (<20); Urine Mucus Slight /HPF (None Seen)
[2022-07-07] MEDS ORDERED: POTASSIUM 25 MEQ EFFERV TAB ONE (17:43)
--- NOTE | 2022-07-07 17:48 | EDPHYS ---
Physician Documentation [facility] Name: Frandy Martin Age: 71 yrs Sex: Male : 1950 Arrival Date: 07/07/2022 Time: 14:26 Bed 20 Private MD: ED Physician Sreekanth Oh HPI: 07/07 14:59 This 71 yrs old Male presents to ER via Unassigned with complaints of Dizziness. snw 14:59 The patient presents with dizziness, feeling faint, generalized weakness. Onset: The snw symptoms/episode began/occurred suddenly, just prior to arrival. Context: occurred outdoors, occurred while the patient was loading limbs in the truck. Modifying factors: The symptoms are alleviated by nothing, the symptoms are aggravated by standing up. Associated signs and symptoms: Pertinent positives: diaphoresis, nausea. Severity of symptoms: At their worst the symptoms were moderate severe in the emergency department the symptoms have improved mildly. two other episode in the past month, both other times were upon entering [facility]. sees Dr. Madrigal. Historical: - Allergies: 15:02 PENICILLINS; db - PMHx: 15:02 Hypertensive disorder; db - Immunization history:: Adult Immunizations up to date, Client reports receiving the 2nd dose of the Covid vaccine. - Social history:: Smoking status: unknown. ROS: 14:56 ENT: Negative for injury, pain, and discharge, Neck: Negative for injury, pain, and snw swelling, Cardiovascular: Negative for chest pain, palpitations, and edema, Abdomen/GI: Negative for abdominal pain, vomiting, diarrhea, and constipation, +nausea 14:56 Back: Negative for injury and pain, : Negative for injury, bleeding, discharge, and swelling, MS/Extremity: Negative for injury and deformity. 14:56 Constitutional: Positive for fatigue, malaise. 14:56 Eyes: Positive for alternating focus left to right, nystagmus?. 14:56 Respiratory: Positive for shortness of breath. 14:56 Skin: Positive for diaphoresis. 14:56 Neuro: Positive for dizziness, near syncope, visual changes, pt states this is the third episode in about 2 months. Exam: 14:53 Head/Face: Normocephalic, atraumatic. Eyes: Pupils equal round and reactive to light, snw extra-ocular motions intact. Lids and lashes normal. Conjunctiva and sclera are non-icteric and not injected. Cornea within normal limits. Periorbital areas with no swelling, redness, or edema. ENT: Nares patent. No nasal discharge, no septal abnormalities noted. Tympanic membranes are normal and external auditory canals are clear. Oropharynx with no redness, swelling, or masses, exudates, or evidence of obstruction, uvula midline. Mucous membranes moist. Neck: Trachea midline, no thyromegaly or masses palpated, and no cervical lymphadenopathy. Supple, full range of motion without nuchal rigidity, or vertebral point tenderness. No Meningismus. Chest/axilla: Normal chest wall appearance and motion. Nontender with no deformity. No lesions are appreciated. Cardiovascular: Regular rate and rhythm with a normal S1 and S2. No gallops, murmurs, or rubs. Normal PMI, no JVD. No pulse deficits. Respiratory: Lungs have equal breath sounds bilaterally, clear to auscultation and percussion. No rales, rhonchi or wheezes noted. No increased work of breathing, no retractions or nasal flaring. Abdomen/GI: Soft, non-tender, with normal bowel sounds. No distension or tympany. No guarding or rebound. No evidence of tenderness throughout. Back: No spinal tenderness. No costovertebral tenderness. Full range of motion. MS/ Extremity: Pulses equal, no cyanosis. Neurovascular intact. Full, normal range of motion. 14:53 Constitutional: The patient appears alert, anxious, diaphoretic, pale, uncomfortable. 14:53 Skin: Appearance: Moisture: diaphoretic. 14:53 Neuro: Orientation: is normal, Mentation: is normal, Sensation: is normal, Abnormal movements: there are no abnormal movements. Vital Signs: 14:35 BP 140 / 84; Pulse 76; Resp 16; Temp 98.6; Pulse Ox 100% ; Weight 96.16 kg; Height 5 db ft. 10 in. (177.80 cm); Pain 0/10; 15:00 BP 132 / 74; Pulse 76; Resp 18; Pulse Ox 100% on R/A; db 17:00 BP 153 / 85; Pulse 69; Resp 18; Pulse Ox 97% on R/A; db 18:20 BP 141 / 86 Supine; Pulse 70; db 18:22 BP 149 / 86; Pulse 73; db 18:24 BP 158 / 89 Standing; Pulse 76; db 19:20 BP 139 / 83; Pulse 69; Resp 19; Pulse Ox 99% ; Pain 0/10; j7 20:30 BP 164 / 92; Pulse 68; Resp 16; Pulse Ox 99% ; Pain 0/10; jj7 21:32 BP 149 / 74; Pulse 75; Resp 18; Pulse Ox 99% ; Pain 0/10; 7 22:29 BP 132 / 75; Pulse 71; Resp 20; Pulse Ox 97% ; j7 23:30 BP 124 / 68; Pulse 68; Resp 16; Pulse Ox 100% ; Pain 0/10; 7 07/08 00:43 BP 117 / 74; Pulse 68; Resp 17; Pulse Ox 99% ; 7 07/07 14:35 Body Mass Index 30.42 (96.16 kg, 177.80 cm) db NIH Stroke Scale Scores: 07/07 14:53 NIHSS Score: 0 snw MDM: 14:26 Patient medically screened. snw 14:59 Differential diagnosis: cardiac arrhythmia, GI bleed, hypovolemia, near-syncope, TIA, snw vertigo. Data reviewed: vital signs, nurses notes. Data interpreted: Pulse oximetry: on room air is 100 %. Interpretation: normal. 07/07 14:27 Order name: Basic Metabolic Panel; Complete Time: 16:20 snw 07/07 14:27 Order name: CBC with Diff; Complete Time: 16:01 snw 07/07 14:27 Order name: LFT's; Complete Time: 16:20 snw 07/07 14:27 Order name: Magnesium; Complete Time: 16:20 snw 07/07 14:27 Order name: NT PRO-BNP; Complete Time: 16:20 snw 07/07 14:27 Order name: PT-INR; Complete Time: 16:01 snw 07/07 14:27 Order name: Troponin HS; Complete Time: 16:20 snw 07/07 14:27 Order name: XRAY Chest (1 view); Complete Time: 15:14 snw 07/07 14:28 Order name: Phosphorus; Complete Time: 16:20 snw 07/07 14:28 Order name: TSH; Complete Time: 16:20 snw 07/07 17:08 Order name: Urine Culture snw 07/07 17:08 Order name: Urine Microscopic Only; Complete Time: 17:39 snw 07/07 17:17 Order name: Urine Dipstick-Ancillary; Complete Time: 17:21 EDMS 07/07 19:28 Order name: SARS RAPID; Complete Time: 11:19 bb 07/07 14:27 Order name: EKG; Complete Time: 14:28 snw 07/07 14:28 Order name: Cardiac monitoring; Complete Time: 16:26 snw 07/07 14:28 Order name: EKG - Nurse/Tech; Complete Time: 16:26 snw 07/07 14:28 Order name: IV Saline Lock; Complete Time: 15:31 snw 07/07 14:28 Order name: Labs collected and sent; Complete Time: 15:32 snw 07/07 14:28 Order name: O2 Per Protocol; Complete Time: 16:26 snw 07/07 14:28 Order name: O2 Sat Monitoring; Complete Time: 16:26 snw 07/07 14:28 Order name: CT Head Brain wo Cont; Complete Time: 15:05 snw 07/07 14:53 Order name: US Carotid Artery Bilateral; Complete Time: 16:20 snw 07/07 17:08 Order name: Urine Dipstick-Ancillary (obtain specimen); Complete Time: 17:19 snw 07/07 17:08 Order name: Orthostatics; Complete Time: 18:26 snw EC:39 Rate is 70 beats/min. Rhythm is regular. T waves are Normal. Clinical impression: NSR snw w/ Non-specific ST/T Changes. Administered Medications: 16:22 CANCELLED (not available): Phenergan (promethazine) 12.5 mg IM once snw 16:26 Drug: Aspirin Chewable Tablet 324 mg Route: PO; db 17:58 Drug: Potassium \T\ Sodium Phosphates Packet 280 mg-160 mg-250 mg 1 packets Route: PO; db 18:26 Follow up: Response: No adverse reaction db Disposition: 16:50 Co-signature as Attending Physician, Sreekanth ESCUDERO was immediately available on-site ms3 in the Emergency Department for consultation in the care of the patient. Disposition Summary: 07/07/22 17:47 Hospitalization Ordered Hospitalization Status: Observation snw Provider: Madrigal, Ge snw Location: Telemetry/MedSurg (observation) snw Condition: Stable snw Problem: an acute exacerbation snw Symptoms: have improved snw Bed/Room Type: Standard snw Room Assignment: 413(07/07/22 22:56) cg Diagnosis - Syncope Near snw Forms: - Medication Reconciliation Form snw - SBAR form snw NIH Stroke Scale - NIH Stroke Score Date: 07/07/2022 Time: 14:53 Total Score = 0 1a. Level of Consciousness (LOC) - 0(Alert) 1b. Level of Consciousness (LOC) (Month \T\ Age) - 0(Both) 1c. LOC Commands (Open \T\ Closes Eyes/National Account Representative) - 0(Both) 2. Best Gaze (Lateral Gaze Paresis) - 0(Normal) 3. Visual Field Loss - 0(No visual loss) 4. Facial Palsy - 0(Normal) 5a. Left Arm: Motor (10-second hold) - 0(No drift) 5b. Right Arm: Motor (10-second hold) - 0(No drift) 6a. Left Leg: Motor (5-second hold - always test supine) - 0(No drift) 6b. Right Leg: Motor (5-second hold - always test supine) - 0(No drift) 7. Limb Ataxia (finger/nose \T\ heel/bernstein - test with eyes open) - 0(Absent) 8. Sensory Loss (pinprick arms/legs/face) - 0(Normal) 9. Best Language: Aphasia (description/naming/reading) - 0(No aphasia) 10. Dysarthria (speech clarity - read or repeat words) - 0(Normal) 11. Extinction and Inattention (visual/tactile/auditory/spatial/personal) - 0(No abnormality) Initials: snw Signatures: Dispatcher [employer] EDMS Komal Lee, TIRE MECHANIC-C TIRE MECHANIC-Csnw Kassidy Zhang, RN RN cg Sreekanth Oh DO DO ms3 Nuha Fuller RN RN db Corrections: (The following items were deleted from the chart) 16:22 14:28 Phenergan (promethazine) 12.5 mg IM once ordered. snw snw 22:56 17:47 snw cg
--- NOTE | 2022-07-07 17:48 | ER ---
Nurse's Notes [facility] Name: Frandy Martin Age: 71 yrs Sex: Male : 1950 Arrival Date: 07/07/2022 Time: 14:26 Bed 20 Private MD: Diagnosis: Syncope Near Presentation: 07/07 14:35 Initial Sepsis Screen: Does the patient meet any 2 criteria? No. Patient's initial db sepsis screen is negative. Does the patient have a suspected source of infection? No. Patient's initial sepsis screen is negative. Risk Assessment: Do you want to hurt yourself or someone else? Patient reports no desire to harm self or others. Onset of symptoms was July 07, 2022. 14:35 Acuity: MAURILIO 2 db 14:40 Chief complaint: EMS states: Patient became dizzy and diaphoretic and pale while trying db to put something in the back of his truck. States has had these similar symptoms but was able to calm down. states felt like was going to pass out had chest "burning" and palpitations. Denies pain. Calm upon arrival and no longer diaphoretic. Coronavirus screen: Vaccine status: Patient reports receiving the 2nd dose of the covid vaccine. Client denies travel out of the [place] in the last 14 days. At this time, the client does not indicate any symptoms associated with coronavirus-19. Ebola Screen: Patient negative for fever greater than or equal to 101.5 degrees Fahrenheit, and additional compatible Ebola Virus Disease symptoms Patient denies exposure to infectious person. Patient denies travel to an Ebola-affected area in the 21 days before illness onset. No symptoms or risks identified at this time. 14:40 Method Of Arrival: EMS: [facility] db Triage Assessment: 15:02 General: Appears in no apparent distress. comfortable, Behavior is calm, cooperative, db appropriate for age. Pain: Denies pain. Complains of pain in chest. Historical: - Allergies: 15:02 PENICILLINS; db - PMHx: 15:02 Hypertensive disorder; db - Immunization history:: Adult Immunizations up to date, Client reports receiving the 2nd dose of the Covid vaccine. - Social history:: Smoking status: unknown. Screenin:00 [facility] ED Fall Risk Assessment (Adult) History of falling in the last 3 months, db including since admission No falls in past 3 months (0 pts). Abuse screen: Denies threats or abuse. Denies injuries from another. Nutritional screening: No deficits noted. Tuberculosis screening: No symptoms or risk factors identified. Assessment: 15:00 Reassessment: Patient appears in no apparent distress at this time. Patient is alert, db oriented x 3, equal unlabored respirations, skin warm/dry/pink. General: Appears in no apparent distress. comfortable, Behavior is calm, cooperative, appropriate for age. Neuro: Reports dizziness. 15:00 Cardiovascular: Reports diaphoresis, lightheadedness, Chest pain "BURNING" SENSATION db ACROSS CHEST. 16:30 Reassessment: Patient appears in no apparent distress at this time. Patient and/or db family updated on plan of care and expected duration. Pain level reassessed. Patient is alert, oriented x 3, equal unlabored respirations, skin warm/dry/pink. PATIENT AMBULATORY TO THE RESTROOM. STEADY GATE. NAD. DENIES DIZZINESS DENIES NAUSEA Patient states feeling better. Patient states symptoms have improved. General: Appears in no apparent distress. comfortable, Behavior is calm, cooperative, appropriate for age. Pain: Denies pain. Neuro: No deficits noted. Level of Consciousness is awake, alert, obeys commands, Oriented to person, place, time, situation. Cardiovascular: No deficits noted. Respiratory: No deficits noted. GI: No deficits noted. No signs and/or symptoms were reported involving the gastrointestinal system. : No deficits noted. No signs and/or symptoms were reported regarding the genitourinary system. EENT: No deficits noted. No signs and/or symptoms were reported regarding the EENT system. Derm: No deficits noted. No signs and/or symptoms reported regarding the dermatologic system. Musculoskeletal: No deficits noted. No signs and/or symptoms reported regarding the musculoskeletal system. 17:38 Reassessment: Patient appears in no apparent distress at this time. No changes from db previously documented assessment. Patient and/or family updated on plan of care and expected duration. Pain level reassessed. Patient is alert, oriented x 3, equal unlabored respirations, skin warm/dry/pink. Patient states symptoms have improved. 18:24 Reassessment: Patient appears in no apparent distress at this time. No changes from db previously documented assessment. Patient and/or family updated on plan of care and expected duration. Pain level reassessed. Patient is alert, oriented x 3, equal unlabored respirations, skin warm/dry/pink. 19:20 Reassessment: ASSUMED CARE OF PT. PT SITTING UP IN BED. NO PAIN OR DISTRESS NOTED .VS jj7 STABLE. CALL UREÑA IN REACH. NO NEEDS AT THIS TIME. 22:00 Reassessment: PT SWITCHED IN TO A HOSPITAL BED FOR COMFORT. VS STABLE. LIGHTS TURNED jj7 OFF .WARM BLANKETS PROVIDED. CALL UREÑA IN REACH. NO NEEDS AT THIS TIME. 07/08 00:41 Reassessment: PT SLEEPING COMFORTABLY IN BED. VS STABLE. CALL UREÑA IN REACH. SIDE RAILS jj7 UP X2. Vital Signs: 07/07 14:35 BP 140 / 84; Pulse 76; Resp 16; Temp 98.6; Pulse Ox 100% ; Weight 96.16 kg; Height 5 db ft. 10 in. (177.80 cm); Pain 0/10; 15:00 BP 132 / 74; Pulse 76; Resp 18; Pulse Ox 100% on R/A; db 17:00 BP 153 / 85; Pulse 69; Resp 18; Pulse Ox 97% on R/A; db 18:20 BP 141 / 86 Supine; Pulse 70; db 18:22 BP 149 / 86; Pulse 73; db 18:24 BP 158 / 89 Standing; Pulse 76; db 19:20 BP 139 / 83; Pulse 69; Resp 19; Pulse Ox 99% ; Pain 0/10; jj7 20:30 BP 164 / 92; Pulse 68; Resp 16; Pulse Ox 99% ; Pain 0/10; jj7 21:32 BP 149 / 74; Pulse 75; Resp 18; Pulse Ox 99% ; Pain 0/10; jj7 22:29 BP 132 / 75; Pulse 71; Resp 20; Pulse Ox 97% ; jj7 23:30 BP 124 / 68; Pulse 68; Resp 16; Pulse Ox 100% ; Pain 0/10; jj7 07/08 00:43 BP 117 / 74; Pulse 68; Resp 17; Pulse Ox 99% ; jj7 07/07 14:35 Body Mass Index 30.42 (96.16 kg, 177.80 cm) db Vitals: 07/07 18:24 Cardiac Rhythm Assessment Regular Sinus rhythm. db NIH Stroke Scale Scores: 14:53 NIHSS Score: 0 snw ED Course: 14:26 Patient arrived in ED. snw 14:26 Sreekanth Oh DO is Attending Physician. snw 14:26 Komal Lee FNP-C is PHCP. snw 14:35 Arm band placed on right wrist. Patient placed in an exam room. db 14:57 Nuha Fuller, RN is Primary Nurse. db 14:58 CT Head Brain wo Cont In Process Unspecified. EDMS 15:02 Triage completed. db 15:06 XRAY Chest (1 view) In Process Unspecified. EDMS 15:13 Inserted saline lock: 20 gauge in left antecubital area, using aseptic technique. Blood ll1 collected. 15:32 Basic Metabolic Panel Sent. bc6 15:32 CBC with Diff Sent. bc6 15:32 LFT's Sent. bc6 15:32 Magnesium Sent. bc6 15:32 NT PRO-BNP Sent. bc6 15:32 PT-INR Sent. bc6 15:32 Troponin HS Sent. bc6 15:32 Initial lab(s) drawn, by me, sent to lab. Inserted saline lock: 20 gauge in right bc6 antecubital area, using aseptic technique. 15:59 US Carotid Artery Bilateral In Process Unspecified. EDMS 17:00 Patient has correct armband on for positive identification. Bed in low position. Call db light in reach. Side rails up X 1. 17:00 Client placed on continuous cardiac and pulse oximetry monitoring. NIBP monitoring db applied. Warm blanket given. 17:00 No provider procedures requiring assistance completed. db 17:19 Urine Culture Sent. bc6 17:19 Urine Microscopic Only Sent. bc6 17:20 Urine collected: clean catch specimen. bc6 17:47 Ge Madrigal MD is Hospitalizing Provider. snw 19:41 SARS RAPID Sent. as7 01/ 00:49 Patient admitted, IV remains in place. jj7 Administered Medications: 07/07 16:22 CANCELLED (not available): Phenergan (promethazine) 12.5 mg IM once snw 16:26 Drug: Aspirin Chewable Tablet 324 mg Route: PO; db 17:58 Drug: Potassium \\T\\ Sodium Phosphates Packet 280 mg-160 mg-250 mg 1 packets Route: PO; db 18:26 Follow up: Response: No adverse reaction db Medication: 17:00 VIS not applicable for this client. db Outcome: 17:47 Decision to Hospitalize by Provider. snw 07/08 00:48 Admitted to Med/surg accompanied by nurse, via wheelchair, room 413, Report called to joaquina ACEVEDO RN Condition: stable 01:22 Patient left the ED. joaquina NIH Stroke Scale - NIH Stroke Score Date: 07/07/2022 Time: 14:53 Total Score = 0 1a. Level of Consciousness (LOC) - 0(Alert) 1b. Level of Consciousness (LOC) (Month \\T\\ Age) - 0(Both) 1c. LOC Commands (Open \\T\\ Closes Eyes/[employer]) - 0(Both) 2. Best Gaze (Lateral Gaze Paresis) - 0(Normal) 3. Visual Field Loss - 0(No visual loss) 4. Facial Palsy - 0(Normal) 5a. Left Arm: Motor (10-second hold) - 0(No drift) 5b. Right Arm: Motor (10-second hold) - 0(No drift) 6a. Left Leg: Motor (5-second hold - always test supine) - 0(No drift) 6b. Right Leg: Motor (5-second hold - always test supine) - 0(No drift) 7. Limb Ataxia (finger/nose \\T\\ heel/bernstein - test with eyes open) - 0(Absent) 8. Sensory Loss (pinprick arms/legs/face) - 0(Normal) 9. Best Language: Aphasia (description/naming/reading) - 0(No aphasia) 10. Dysarthria (speech clarity - read or repeat words) - 0(Normal) 11. Extinction and Inattention (visual/tactile/auditory/spatial/personal) - 0(No abnormality) Initials: snw Signatures: Dispatcher [employer] EDMS Komal Lee, WELDING SPECIALIST-C WELDING SPECIALIST-Csnw Eagle Chen RN RN llStephany Arce RN RN jj7 Benton, Danielle, RN RN db Senkyrik, Autumn as7 [place]son, Breana bc6
[2022-07-07] MEDS ORDERED: POTASS/SODIUM PHOSPHATE 1 PKT POWD.PACK ONE (17:56)
[2022-07-07 19:58] LABS: SARS-CoV-2 Antigen Rapid Res Negative (Negative)
[2022-07-08] MEDS ORDERED: ACETAMINOPHEN 500 MG TAB PO PRN (01:05)
--- NOTE | 2022-07-08 01:42 | HP ---
Date of Admission: 07/08/2022 Chief Complaint: Nausea, dizziness, sweating, and chest pain. History Of Present Illness: This is a 71-year-old male patient who had 3 episodes of nausea, dizzine ss and sweating in last 1 month and today's episode was worst episode and he came into emergency room . After he was evaluated, he was admitted to the hospital. The patient reports that today he was lo ading and unloading some heavy loads in the back of his truck and after working for about 10 to 15 mi nutes, all of a sudden he started to feel dizzy, felt like he was getting nauseated and he was sweati ng a lot. Subsequently, he started to have some burning type of chest pain right across the chest. With all these complaints, he was brought into emergency room and after he was evaluated, he was admi tted to the hospital. He had 2 prior episodes of similar nature. Denies any headache. No blurred v ision or double vision. No loss of eyesight. After the patient was evaluated in the emergency room, he was admitted to the hospital. Physical Examination: Vital Signs: Temperature , pulse , respiratory rate , blood pressure _ , oxygen saturation , height , and weight . General: Awake, alert, oriented, not in distress. HEENT: Head atraumatic, normocephalic. Conjunctivae nonerythematous. Sclerae white. Mouth, no thr ush or edema noted. Ears/Nose, no mass, lesion, discharge noted. Neck: Supple. No JVD, lymph nodes, bruit, thyromegaly noted. Lungs: Bilateral good equal air entry. Clear to auscultation. No rhonchi. No rales. Heart: Normal heart sounds, no murmur or gallop. Abdomen: Soft, bowel sounds normal. No guarding, rigidity, tenderness, mass, hepatosplenomegaly, dis tention, or bruit noted. Extremities: No leg edema. No calf tenderness. Skin: No rash, ulcer, cellulitis. Lymphatics: No lymph node enlargement in neck, supraclavicular, infraclavicular region. Neuro: No focal neurological deficit. Chest: Unremarkable. External Genitalia: Deferred. Rectal: Deferred. Laboratory Data: White count 11.9, hemoglobin 15.3, and platelets 211. Sodium 139, potassium 3.9, c hloride 109, bicarb 25, BUN 15, creatinine 1.31, and glucose 114. Liver function tests unremarkable. Phosphorus low at 2. Troponin level 6.1. TSH 0.628. CAT scan of the head was negative for any ac rincon intracranial changes. Chest x-ray with no acute cardiopulmonary changes noted. Carotid Doppler shows plaquing of the carotid revealing approximately 50% stenosis of the right carotid. EKG with no acute changes. Impression: 1.Chest pain. 2.Dizziness. 3.Hypertension. 4.Hyperlipidemia. Plan: We will go ahead and admit the patient to hospital for further evaluation and management of th is problem. We will get serial cardiac enzymes. Consult Cardiology. Consult Neurology. Continue h ome medications per order. We will get echo with Doppler tomorrow and Lexiscan stress test tomorrow and plan of treatment discussed with the patient. DVT prophylaxis will be given per order. I will s ee him tomorrow morning for followup. PACO/MODL Voice ID: [id number]
[2022-07-08 01:56] VITALS: BMI 30.9
[2022-07-08 03:54] LABS: Absolute Lymphocytes (CBC) 1.7 K/uL (0.7-4.9); Lymphocytes % 23.5 % (15.3-44.8); MCV 91.1 fL (80-100); MPV 7.3 fL (7.6-11.3); RBC Red Blood Cell Count 4.61 M/uL (4.33-5.43)
[2022-07-08 04:11] LABS: Potassium 3.6 mmol/L (3.5-5.1); Troponin High Sensitivity 6.1 pg/mL (<58.9)
[2022-07-08] MEDS: PANTOPRAZOLE 40MG TABLET PO SCH (05:09)
[2022-07-08] MEDS ORDERED: REGADENOSON 0.4 MG/5 ML SYR IV ONE (07:50)
[2022-07-08] MEDS ORDERED: PNEUMOCOCCAL VACCINE 0.5 ML IMVAC ONE ×2 (08:00→21:00)
[2022-07-08] MEDS: CITALOPRAM 10 MG TABLET PO SCH (10:01)
[2022-07-08] MEDS: TAMSULOSIN 0.4 MG SR CAP PO SCH (10:01)
[2022-07-08] MEDS: lisinopriL 20 MG TAB PO SCH (10:01)
[2022-07-08] MEDS ORDERED: LORAZEPAM 1 MG TABLET PO ONE (13:55)
--- NOTE | 2022-07-08 14:22 | RAD REPORT ---
EXAM DESCRIPTION: NM - Rest Stress Cardiac Imaging - 07/08/2022 2:12 pm CLINICAL HISTORY: Chest pain COMPARISON: Portable chest 07/07/2022 TECHNIQUE: The patient was administered 10.7 mCi of Tc 99m Sestamibi prior to resting SPECT imaging of the heart. The patient was then administered 29.6 mCi of Tc 99m Sestamibi following exercise or ph armacologic stress. Multiplanar SPECT images were reviewed. FINDINGS: The end diastolic volume is 134 ml, the end systolic volume is 47 ml, and the ejection fra ction is 65 %. Moderately large area of fixed perfusion abnormality is seen in the inferior wall from base to apex. No clearly ischemic component seen. This could be scarring, attenuation artifact or a combination. No stress-induced ischemic changes seen. IMPRESSION: No stress-induced ischemic changes confirmed on this study. Moderately large inferior wall fixed perfusion abnormality from base to apex could be scarring, diaph ragmatic attenuation artifact or a combination. End-diastolic volume is enlarged slightly at 134 mL. Ejection fraction is well within normal limits a t 65%.
--- NOTE | 2022-07-08 17:46 | RAD REPORT ---
EXAM DESCRIPTION: MRI - MRA Neck W/Wo Cont - 07/08/2022 5:23 pm CLINICAL HISTORY: CVA, syncope COMPARISON: MRI brain same date, CT head 07/07/2022 TECHNIQUE: MR angiography of the cervical vasculature performed. Coronal imaging plane acquisition u tilized. A 20 MultiHance contrast volume was utilized. Coronal reformatted images were generated and reviewed. Vertical axis 3D rotational projections obtained using maximum intensity projection protoco l. FINDINGS: No stenosis or focal abnormality at the great vessel origins. Bilateral subclavian arterie s are unremarkable. No stenosis seen at the origin of the codominant vertebral arteries. No significa nt or suspicious vertebral finding. Vertebrobasilar vasculature is tortuous. Bilateral common carotid arteries show mild tortuosity but no focal abnormalities. The left bulb and left ICA show no suspicious findings. Prominent plaquing changes are present at the right carotid bul b creating a approximately 50% stenosis. More distally the internal carotid artery shows prominent to rtuosity but no focal stenosis. No dissection changes are present. IMPRESSION: Irregular plaquing changes in the right carotid bulb with approximately 50% stenosis. Additional nonacute or non clinically significant findings detailed in the body of the report.
--- NOTE | 2022-07-08 17:49 | RAD REPORT ---
EXAM DESCRIPTION: MRI - Brain W/Wo Cont - 07/08/2022 5:23 pm CLINICAL HISTORY: syncope COMPARISON: Head Brain Wo Cont dated 07/07/2022 TECHNIQUE: Sagittal and axial T1-weighted images were obtained. Axial PD/heavily T2-weighted and T2- FLAIR images were obtained along with axial DWI/ADC mapping sequences. Coronal heavily T2 weighted s equence obtained. Axial and coronal post-contrast T1-weighted images were also obtained. A 20 ml Mul tihance contrast following utilized. FINDINGS: No intracranial hemorrhage, mass or acute infarction. There is no edema or shift of midli ne structures. No extra-axial fluid collections. Yee-matter/white matter junction is preserved. Sig nal voids are seen as a normal finding in the major intracranial vessels. No significant atrophy or c hronic ischemic change seen. Ventricles are normal in size. Post-contrast images show normal enhancement. No dural thickening. Mastoid air cells and paranasal sinuses are clear. No globe or orbital content suspicious finding. IMPRESSION: No acute or subacute infarction changes. No acute intracranial process identifiable.
--- NOTE | 2022-07-08 17:56 | RAD REPORT ---
EXAM DESCRIPTION: MRI - MRA Head Wo Cont - 07/08/2022 5:23 pm CLINICAL HISTORY: Syncope, CVA COMPARISON: MRI brain same date TECHNIQUE: MR angiography of the cervical vasculature performed. Coronal imaging plane acquisition u tilized. A MultiHance contrast volume was utilized. Coronal reformatted images were generated and re viewed. Vertical axis 3D rotational projections obtained using maximum intensity projection protocol. FINDINGS: No aneurysm or vascular malformation identified. No named branch occlusion, dissection, or vasculitis. Right posterior communicating artery is present with very small or absent right BEEF GRINDER P1 s egment. Right posterior cerebral artery is small and not well visualized relative to the left posteri or cerebral artery. This may be due to the more diminished flow through the posterior communicating a rtery. There are no acute or chronic manifestations of CVA in the right BEEF GRINDER distribution. Vertebrobasilar tortuosity is present without focal abnormality. No basilar artery significant findin g. IMPRESSION: Right posterior cerebral artery is very small in size along its entire course with its e ntire or primary supply via the right posterior communicating artery. This is a normal anatomic variation. The diminished appearance to the right BEEF GRINDER may be technical. The re are no manifestations of right BEEF GRINDER distribution acute or chronic ischemia. Remainder the examination is without significant finding.
--- NOTE | 2022-07-08 19:42 | CON ---
Reason For Consultation: Consultation called because of dizziness. History Of Present Illness: Mr. Martin is a 71-year-old right-handed patient with hype rtension who comes to [facility] with history of 3 similar episodes of vertigo with nausea, generalized weakness, and feeling faint. The most recent episode brought him into the hospital. He said it occurred on the day of this admission and that was the longest. He actually was loading some items onto his truck. He was bending and lifting up and putting items in the truck when after stand ing up, he felt as though the world was spinning and moving around. He felt nauseated, had generaliz ed weakness, and had to hold on to prevent from falling. He also had a burning sensation across his chest. He denies any focal findings such as face, arm, or leg weakness or numbness or seizure-like a ctivity, which may be shaking, tongue biting, or loss of bowel and bladder control. He came to [facility] and had an evaluation including head CT scan at 02:28. That CT scan showed no acute i schemic or hemorrhagic findings and his arrival time in the emergency room was 226. He was not consi dered to be a patient having a stroke and his NIH Stroke Scale was 0. He was evaluated for myocardia l infarction and admitted for cardiac workup. His complete blood count with differential was unremar kable. INR 1.1. Chemistries unremarkable except for mild dehydration with creatinine 1.31 and after hydration today is 0.93. Liver function studies were normal. Thyroid function panel was normal. C alcium and magnesium unremarkable. Urinalysis is unremarkable. COVID testing was negative. Chest x -ray revealed no acute cardiopulmonary processes. A carotid artery ultrasound showed moderate hard p laque in the right carotid bulb without hemodynamically significant stenosis. A cardiac imaging nucl ear medicine stress test revealed no stress-induced ischemia. There was a moderately large inferior wall fixed perfusion abnormality from base to apex, which could be scarring, diaphragmatic attenuatio n, artifact, or a combination. Ejection fraction was around 65%. Past Medical History: Hypertension. Allergies: PENICILLIN. Family History: Noncontributory. Social History: Occasional alcohol. No tobacco use. Review of Systems: As noted, the patient has had a total of 3 similar episodes in 2 months. At 1 episode he was in the grocery store and came out, was unsteady on his feet, held on to the grocery cart for a while and as he got out to his truck, he looked over at the car that was about 80 feet away and the car was moving back and forth in his vision. He was eventually able to drive home after that event subsided about 30 seconds later. Physical Examination: Vital Signs: Blood pressure 145/91, pulse 68, respiratory rate 16, temperature 97.6, and oxygen satu ration 100% on room air. Weight 212 pounds, height 5 feet 9 inches 0.5 inches BMI 30.9. General: Mr. Martin is resting comfortably. He is in no significant distress. HEENT: He is normocephalic, atraumatic. His sclerae are anicteric. Oropharynx pink and moist. Neck: Supple. Chest: Clear. Heart: Regular. Extremities: No clubbing, cyanosis, or edema. Neurologic: He has no cranial nerves or no focal motor, coordination, sensory, or gait deficits. Re flexes are 1 to 2+ and symmetric. Gait: He has good stance and stride. Assessment: Mr. Martin is a 71-year-old patient with repeated vertiginous episodes and hypertens ion. His head CT scan shows no significant abnormalities. Vascular evaluation is not significant at this point. Plan: 1.He should perform the Duglas maneuver as is appropriate. 2.Continue with lisinopril for hypertension. 3.He also has Flomax for prostatic hypertrophy. 4.He should be on folic acid 1 mg daily. 5.After discharge, follow up in Dr. Garcia's clinic within the month. CLARICE/PRANAY Voice ID: [id number] Report ID: [id number]
--- NOTE | 2022-07-08 19:56 | CON ---
Date of Consultation: 07/08/2022 Reason For Consultation: Chest pain and dizziness. History Of Present Illness: A 71-year-old male who has history of dizziness, nausea, and episodes of chest pain, presented to the emergency room. No further chest pain is present. Patient felt that t hings are spinning around and feels also inability to focus, but denies having any neurological focal deficits. There is no exertional chest pain. No shortness of breath. Past Medical History: Hypertension. Medications: Refer to reconciliation sheet for detailed list. Allergies: PENICILLIN. Family History: No premature coronary artery disease or cancer. Social History: He does not smoke or drink. Does not use any drugs. Review of Systems: All systems reviewed are negative except mentioned in HPI. Physical Examination: Vital signs: Reviewed. Head and Neck: Pupils are equal, reactive to light. Intact eye movements. No JVD. No cyanosis. Neck: Supple. Thyroid is not enlarged. Lungs: Clear to auscultation bilaterally. No rhonchi, wheezing, or crackles. No accessory muscle u se. Heart: Regular rate and rhythm. No extra sounds. Abdomen: Soft, nontender. Bowel sounds positive. No organomegaly. No masses or hernia. No rigidi ty or rebound. Extremities: No clubbing, cyanosis. Intact pulses. Skin: No rash. Neurologic: Alert, awake, oriented x3. No acute focal deficits appreciated. Investigations: BUN is 15, creatinine 0.93, and hemoglobin is 14.6. Assessment And Recommendations: 1.Chest pain. It is atypical. Cardiac enzymes have been negative and stress test is negative. Thi s is not cardiac in etiology. Await on the echocardiogram. 2.Hypertension. Blood pressure is slightly elevated on lisinopril. Re-assess in the morning. Adju st medications if needed. 3.Dizziness. Worrisome for possible cerebellar cerebrovascular accident. An MRI is recommended. SR/MODL Voice ID: [id number] Report ID: [id number]
[2022-07-09 05:56] VITALS: O2SAT 98
[2022-07-09] MEDS: PANTOPRAZOLE 40MG TABLET PO SCH (06:35)
[2022-07-09 09:09] VITALS: BP 147/84; TEMP 97.2
[2022-07-09] MEDS: TAMSULOSIN 0.4 MG SR CAP PO SCH (09:37)
[2022-07-09] MEDS: lisinopriL 20 MG TAB PO SCH (09:37)
[2022-07-09] MEDS: CITALOPRAM 10 MG TABLET PO SCH (09:37)
--- NOTE | 2022-07-09 09:45 | DS ---
Date of Discharge: 07/09/2022 Disposition: Discharged to go home. Physical Examination: HEENT: Unremarkable. Lungs: Clear to auscultation. Heart: Sounds normal. Abdomen: Soft. Bowel sounds normal. No guarding, rigidity, tenderness, or distention. Extremities: No leg edema. Neuro: No focal neurological deficits. Laboratory Data: Upon admission: Sodium 139, potassium 3.9, chloride 109, bicarb 25, BUN 15, creati nine 1.31, glucose 114. Liver function tests unremarkable. Troponin 6.1 on the first set and second set. Yesterday: Sodium 139, potassium 3.6, chloride 106, bicarb 27, BUN 15, creatinine 0.93, gluco se 112. Upon admission: White count was 11.9, hemoglobin 15.3, platelets 211. Yesterday, white cou nt 7.3, hemoglobin 14.6, platelets 207. Chest x-ray was negative. CAT scan of the head was negative for any acute intracranial changes. MRA of neck shows irregular plaquing involving right carotid bu lb with approximately 50% stenosis Lexiscan stress test, no stress-induced ischemia. MRA of the head shows right posterior cerebral artery is very small in size along with its entire or primary supply, via right posterior communicating artery and there is no evidence of any ischemia in this distributi on. MRI of brain was negative for any acute intracranial changes. No evidence of stroke. Carotid D oppler shows moderate hard plaquing in the right carotid bulb. Discharge Medications: Continue all prior home medication. Discharge Instructions: 1.Come to my office for fasting blood test this coming week and after blood test is done, he should start taking atorvastatin 40 mg daily at bedtime and this prescription will be sent to [facility] and once you start atorvastatin, you should stop lovastatin at that time. 2.Follow up at my office week after next. Hospital Course: This is a 71-year-old male patient, who came into emergency room with complaints of dizziness, nausea, sweating, and chest pain. Please see dictated H and P for more information. Aft er patient was evaluated in the emergency room, he was admitted to the hospital. His MN was ruled ou t. Cardiology and Neurology consultation were requested and details were discussed with Dr. Garcia yesterday and his stroke was ruled out and his presentation of dizziness associated with other sympt om is likely due to underlying vertigo type of problem. MN was ruled out and carotid Doppler and MRA has shown approximately 50% stenosis of the right carotid artery and findings of all these test resu lts reviewed with the patient today. He takes lovastatin at home and I have asked him to discontinue that and start atorvastatin, but prior to starting atorvastatin, he will get fasting lipid profile d one at the office. He was advised to change position slowly, keep himself well hydrated, and I will see him at office for followup in the near future. Final Diagnoses: 1.Chest pain. 2.Dizziness. 3.Benign positional vertigo. 4.Hypertension. 5.Hyperlipidemia. 6.Right-sided carotid artery stenosis. PACO/MODL Voice ID: [id number] Report ID: [id number]
--- NOTE | 2022-07-09 17:25 | PN ---
Date of Progress Note: 07/08/2022 Subjective: The patient was seen this morning for followup. Denies any headache, nausea, vomiting. No chest pain. Objective: Vital Signs: Reviewed. HEENT: Unremarkable. Lungs: Clear to auscultation. Heart: Sounds normal. Abdomen: Soft. Bowel sounds normal. No guarding, rigidity, tenderness, distention. Extremities: No leg edema. Neuro: No focal neurological deficits. Laboratory Data: White count 12.3, hemoglobin 14.6, platelets 207. Sodium 139, potassium 3.6, chlor rima 106, bicarb 27, BUN 15, creatinine 0.93 glucose 112. Impression: 1.Chest pain. 2.Dizziness. 3.Hypertension. 4.Hyperlipidemia. Plan: We will go ahead and continue current medications. Follow up with office messenger helper and neurologis t, consultation was requested and we will follow up with these 2 physicians and see what their recomm endation is. The patient will have MRI of brain done today. We will also have stress test and echoc ardiogram. Details of plan of treatment discussed with him. PACO/MODL Voice ID: [id number] Report ID: [id number]
--- NOTE | 2022-07-09 17:43 | EKG ---
Test Date: 2022-07-07 Test Time: 14:42:33 Loop Tender: BCW MEASUREMENT RESULTS: Intervals: Rate: 70 SD: 184 QRSD: 88 QT: 408 QTc: 440 Switchback: P: 48 SD: 184 QRS: -4 T: 25 INTERPRETIVE STATEMENTS: Normal sinus rhythm Normal ECG No previous ECG available for comparison Electronically Signed On 07-09-22 17:40:26 PICKER OPERATOR by Yoshi Galvan
--- NOTE | 2022-07-11 06:51 | ECHO ---
HEIGHT: 5 ft 9.5 in WEIGHT: 212 lb 4 oz DATE OF STUDY: 07/08/[address]: Komal Goncalves CHLORINE CELLS OPERATOR-BC 2-DIMENSIONAL: YES M.MODE: YES DOPPLER: YES COLOR FLOW: YES TDS: PORTABLE: YES DEFINITY: BUBBLE STUDY: DIAGNOSIS: NEAR SYNCOPE CARDIAC HISTORY: CATHERIZATION: NO SURGERY: NO PROSTHETIC VALVE: NO PACEMAKER: NO MEASUREMENTS (cm) DIASTOLIC (NORMALS) SYSTOLIC (NORMALS) IVSd 1.1 (0.6-1.2) LA Diam 2.6 (1.9-4.0) LVEF 55-60% LVIDd 5.1 (3.5-5.7) LVIDs 3.8 (2.0-3.5) %FS 27% LVPWd 1.1 (0.6-1.2) Ao Diam 3.0 (2.0-3.7) 2 DIMENSIONAL ASSESSMENT: RIGHT ATRIUM: NORMAL LEFT ATRIUM: NORMAL RIGHT VENTRICLE: NORMAL LEFT VENTRICLE: NORMAL TRICUSPID VALVE: NORMAL MITRAL VALVE: MILD MITRAL REGURGITATION PULMONIC VALVE: NORMAL AORTIC VALVE: MILD AORTIC INSUFFICIENCY PERICARDIAL EFFUSION: NONE AORTIC ROOT: NORMAL LEFT VENTRICULAR WALL MOTION: NORMAL DOPPLER/COLOR FLOW: SEE BELOW COMMENTS: 1. NORMAL LEFT VENTRICULAR EJECTION FRACTION 55-60% 2. NORMAL WALL MOTION 3. MILD MITRAL REGURGITATION 4. MILD AORTIC INSUFFICIENCY 5. MILD TRICUSPID REGURGITATION TECHNOLOGIST: MUNA HAINES
--- NOTE | 2022-07-11 06:55 | TREADPHA ---
DX: CHEST PAIN Date of Study: 07/08/2022 Ht: 5' 9.5 " Wt: 212 lb 4 oz Consulting Physician: KAVYA MEDICATIONS: CELEXA, PRINIVIL, TYLENOL, FLOMAX HISTORY: 71 YEAR OLD MALE WITH COMPLAINTS OF DIZZINESS. HISTORY OF HYPERTENSION PHYSICIAL EXAMINATION: RESTING B.P.: 160/98 RESTING H.R.: 71 RESTING EKG: NORMAL SINUS RHYTHM, WITHIN NORMAL LIMITS PROTOCOL: PHARMACOLOGIC EXERCISE TIME: 3:30 B.P. AT PEAK STRESS: 153/85 IMPRESSION: LEXISCAN INJECTED. CARDIOLITE INJECTED - SEE NUCLEAR MEDICINE REPORT. NO CHEST PAIN REPORTED. NO SUPRAVENTRICULAR TACHYCARDIA, VENTRICULAR TACHYCARDIA, PREMATURE VENTRICULAR COMPLEXES OR PREMATURE ATRIAL COMPLEXES NOTED. PATIENT STATES FEELING SICK TO STOMACH. NO ELECTROCARDIOGRAM CHANGES WITH LEXISCAN.
== END 2022-07-09 10:00 | disposition home or self-care (01) ==
LOC: SUPCPDRO 14:17 → ER 14:17 → 4TH 07-08 00:56
PROVIDERS: ADMIT Internal Medicine; ATTEND Internal Medicine
DX: R07.9 Chest pain, unspecified (principal); H81.10 Benign paroxysmal vertigo, unspecified ear; I65.21 Occlusion and stenosis of right carotid artery; I10 Essential (primary) hypertension; R42 Dizziness and giddiness; E78.5 Hyperlipidemia, unspecified; Z88.0 Allergy status to penicillin; Z20.822 Contact with and (suspected) exposure to COVID-19; Z23 Encounter for immunization
CPT/HCPCS: 93005; 93017; 93306; 87088; 85025 ×2; 87086; 80048 ×2; 36415; 83735; 84100; 85610; 80076; 84443; 84484 ×2; 83880; 70450; 71045; 93880; 70553; 70544; 70549; 78452; 99285; 87811; A9577; J2785; A9500; 81003; 81015; G0378

== ENCOUNTER 2023-02-23 10:54 | Emergency (ER) | payer OTHER, MEDICARE ==
--- OUTSIDE RECORDS SUMMARY | 2023-02-23 10:58 | XMS REPORT | Continuity of Care Document ---
:1950 Author Organization [facility] t Address [address] [facility] [address] [place] [address] Care Team Providers Name Role Phone Ge Madrigal Primary Care Physician BESSIE COMBS Attending Clinician Unavailable ANAHY CROSS Attending Clinician Unavailable STEFF NGO Attending Clinician Unavailable RUFUS HARRIS Attending Clinician Unavailable Rufus Canseco Attending Clinician Unknown, Attending Attending Clinician Unavailable Bob Lynn Attending Clinician BOB STEVE Attending Clinician Unavailable Phani Cowan Attending Clinician SEUN FIGUEROA Attending Clinician Unavailable Praveen Roland MD Attending Clinician Jose Juarez MD Attending Clinician Jose Juarez Attending Clinician RUSSELL AKINS Attending Clinician Unavailable TANIYA SHAH Attending Clinician Unavailable David Attending Clinician Unavailable Quincy Cortes Attending Clinician [phone] Loni Gonsales Attending Clinician Provider, [facility] Attending Clinician Unavailable LONI BATISTA Attending Clinician Unavailable Doctor Unassigned, [place] Attending Clinician Unavailable JOSE JUAREZ M.D. Attending Clinician Unavailable HEIDY GONZALEZ M.D. Attending Clinician Unavailable ELIEL GONZALEZ M.D. Attending Clinician Unavailable David Admitting Clinician Unavailable Payers Payer Name Policy Type Policy Number Effective Date Expiration Date Eloina baugh AARP MEDICARE [id number] 2020 SUPPLEMENT 00:00:00 MEDICARE PART B [id number] 2019 2019 00:00:00 00:00:00 MEDICARE PART A [id number] 2014 \T\ B 00:00:00 [facility] [id number] 2021 MEDICARE 00:00:00 SUPPLEMENT [place] [id number] 2020 HEALTHCARE/AARP 00:00:00 MEDICARE B-[place]: [id number] 2014 [place] [employer]IONS 00:00:00 [facility] HEALTHC[facility] [id number] 2020 OPTIONS (MEDICARE 00:00:00 SUPPLEMENT) Problems Condition Condition Condition Status Onset Resolution Last Treating Co mments Source Name Details Category Date Date Treatment Clinician Date Foot drop Foot drop Disease Active [facility] 6-22 Health 00:00: 00 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 Willie kang stenosis stenosis 11-25 11:57:27 l in in 00:00: Иван cervical cervical 00 region region (disorder) (disorder) Active 11/26/2015 Problem 12/05/2022 [facility] [place],[facility] Apnea Apnea Disease Active [facility] 07-03 Health 00:00: 00 History of History of Problem Resolve UT [...] e sleep e sleep ans apnea apnea No known No known Disease Unive rs active active ity of problems problems [facility] Gastroesop Gastroeso Problem Active 2022-12-05 Memoria hageal phageal 11:57:27 l reflux reflux [place] disease disease (disorder) (disorder) Active Problem 12/05/2022 [facility] Carpal Carpal Problem Active 2022-12-05 Willie kang tunnel 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:57:27 l syndrome syndrome Jose n (disorder) (disorder) Active Problem 12/05[facility]2022 [facility] Smoker Smoker Problem Active 2022-12-05 Willie kang (finding) (finding) 11:57:27 l Active Иван Problem 12/05/2022 [facility] Hypertensi Hypertens Problem Active 2022-12-05 Memoria ve rachael 11:57:27 l disorder, disorder, Herm marcin systemic systemic arterial arterial (disorder) (disorder) Active Problem 12/05/2022 [facility] Hyperlipid Hyperlipi Problem Active 2022-12-05 Memoria emia demia 11:57:27 l (disorder) (disorder) He rmann Active Problem 12/05/2022 [facility] Numbness Numbness Problem Active 2022-12-05 Memoria of hand of hand 11:57:27 l (finding) (finding) Herm macrin Active Problem 12/05/2022 Bilateral [facility] Finding Finding Problem Active 2022-12-05 Me moria relating relating 11:57:27 l to moist to moist Jose n tobacco tobacco use use (finding) (finding) Active Problem 12/05/2022 [facility] Spinal Spinal Problem Active 2022-12-05 Willie kang stenosis stenosis 11:57:27 l of lumbar of lumbar Herm marcin region region (disorder) (disorder) Active Problem 12/05/2022 [facility], MARCELL Mueller,[facility] Vertigo Vertigo Problem Active 2022-12-05 Ok moria (finding) (finding) 11:57:27 l Active Иван Problem 12/05/2022 [facility] [place] Anxiety Anxiety Problem [facility] d 03:30:39 l Resolved [place] Problem 12/05/2021 [facility], MARCELL Mueller R91.1 - R91.1 - Diagnosis Active 2021-11-09 Memoria SOLITARY SOLITARY 14:36:00 l PULMONARY PULMONARY Herm marcin NODULE NODULE R05.9 R05.9 Active MARCELL Mueller Allergies, Adverse Reactions, Alerts Allergy Allergy Status Severity Reaction(s) Onset Inactive Treating Comm ents Source Name Type Date Date Clinician Penicill Propensi Active Unknown 2020-07 [facility] ins ty to 2-06 Health adverse 00:00: reaction 00 s Penicill Propensi Active Rash Univer s ins ty to 6-16 ity of adverse 00:00: [place] reaction 00 Medical s Branch Penicill Propensi Active Rash 0 Univer s ins ty to 6-16 ity of adverse 00:00: [place] reaction 00 Medical s Branch PENICILL Drug Active Rash 2020-0 Univers INS Class 6-16 ity of 00:00: [place] 00 Medical Branch Penicill Allergy Active Other UT ins to drug Physici (finding ans ) penicill penicill Active Mild Memori a ins ins l [place] NO KNOWN Drug Active Univers ALLERGIE Class ity of S [place] [facility] penicill penicill Active Memori a ins ins l Иван PENICILL Allergy Active [place] INS to Metro substanc Urology e Family History Family Member Diagnosis Comments Start Date Stop Date Source Mother Family history of [facility] Physicians Mother Family history of [facility] Phys icians cerebrovascular accident (CVA) Father Family history of malignant [facility] Physicians neoplasm Father Family history of [facility] Physicians Social History Social Habit Start Date Stop Date Quantity Comments Source Gender identity [facility] Sexual orientation Univer [facility] History of tobacco Snuff User ME Hea lt use History of Social 2023-02-15 2023-02-15 Univers ity of function 00:00:00 00:00:00 [facility] Alcohol intake 2022-12-22 2022-12-22 2.86 /d ME Health 00:00:00 00:00:00 Exposure to 2022-06-13 2022-06-[address] [facility] SARS-CoV-2 (event) 00:00:00 09:12:00 Tobacco use and 2022-03-01 2022-03-[address] [facility] exposure 00:00:00 00:00:00 smokeless tobacco Cigarette 2021-11-04 2021-11-[address] [facility] pack-years 00:00:00 00:00:00 Social History 2014-08-01 2014-08-[address] [facility] Mikey ian 20:41:29 20:41:29 Sex Assigned At 1950 [address] [facility] 00:00:00 00:00:00 Smoking Status Start Date Stop Date Source Never Smoker [facility] Ex-smoker (finding) ME Physician s Tobacco smoking consumption [facility] ealt unknown Tobacco smoking status 2022-12-02 14:14:18 Cynthia Oates Occasional tobacco smoker 2022-03-01 00:00:[address] [facility] Medications Ordered Filled Start Stop Current Ordering Indication Dosage Frequency Signature Comments Components Source Medication Medication Date Date Medication? Clinician (SIG) Name Name benzonatate 2022- Yes [id number] 100mg Take 1 Univers (TESSALON 02-15- capsule by [place]) 100 00:00: 04:59 [place] mg capsule 00 :00 every 8 Medica l (eight) Branch hours for 10 days. benzonatate 2022- Yes [id number] 100mg Take 1 Univers (TESSALON 8-15 02-27 capsule by [place]) 100 00:00: 04:59 [place] mg capsule 00 :00 every 8 Medica l (eight) Branch hours for 10 days. dexamethaso 2022- No [id number] 10mg U nivers ne 01-23 ity of (DECADRON) 14:53: 14:59 [place] injection 00 :00 Medical 10 mg Branch dexamethaso 2022- No [id number] 10mg 10 mg, Univers ne 01-23 Intramuscu ity of (DECADRON) 14:53: 14:59 lar, ONCE, [place] injection 00 :00 1 dose, On Medi jon 10 mg Mon Branch 01/23/23 at 1000, Routine predniSONE Yes [id number] Take two Univers 20 mg 7-24 tablets ity of tablet 00:00: daily for [place] 4 days, Medical then one Branch tablet daily for 4 days, then half tablet daily for 4 days. predniSONE Yes [id number] Take two Univers 20 mg 7-24 tablets ity of tablet 00:00: daily for [place] 4 days, Medical then one Branch tablet daily for 4 days, then half tablet daily for 4 days. predniSONE Yes [id number] Take two Univers 20 mg 7-24 tablets ity of tablet 00:00: daily for [place] 4 days, Medical then one Branch tablet daily for 4 days, then half tablet daily for 4 days. predniSONE Yes [id number] Take two Univers 20 mg 7-24 tablets ity of tablet 00:00: daily for [place] 4 days, Medical then one Branch tablet daily for 4 days, then half tablet daily for 4 days. albuterol 2022- Yes [id number] 2{puff} Inhale 2 Univers 90 01-23 08-04 Puffs ity of mcg/actuati 00:00: 04:59 every 6 [place] on inhaler 00 :00 (six) Medical hours as Branch needed for Wheezing for up to 10 days. codeine-gua 2022- Yes 10mL Take 10 mL Univers ifenesin 01-2330 by mouth ity of 10-100 mg/5 00:00: 04:59 every 6 [place] mL oral 00 :00 (six) Medical solution hours as Branch needed for Cough for up to 5 days. Indication s: cough atorvastati Yes 40 mg = 1 M emoria n 40 mg 6-02 tab, PO, l oral tablet 14:35: Bedtime, # [place] 00 30 tab, 0 Refill(s) atorvastati Yes UT n (Lipitor) 2-22 Health 40 MG 00:00: tablet 00 tamsulosin 2021-07 Yes .4mg QD Take 0.4 [...] capsule 44 (one) time each day. citalopram 2022-0 Yes QD Take by UT (CeleXA) 20 [...] :00 each day. gabapentin 2022-0 2022- No [id number] Take by UT (Neurontin) 5-05 05-05 [id number] mouth 3 Health 250 MG/5ML 17:17: 00:00 [...] Health [address] 00:00: capsule 00 lisinopril 2-0 Yes UT 20 MG 2-13 Health tablet 00:00: 00 lovastatin 2022-0 2023- No UT (Mevacor) 2-13 06-22 Health 20 MG 00:00: 00:00 tablet 00 :00 benzonatate 2022-0 Yes [id number] 200mg Take 2 Univers (TESSALON 1-07 capsules ity of PERLES) 100 00:00: [place] mouth [place] mg capsule 00 every 8 Medica l (eight) Branch hours as needed for Cough. benzonatate Yes [id number] 200mg Take 2 Univers (TESSALON 1-07 capsules ity of PERLES) 100 00:00: [place] mg capsule 00 every 8 Medica l (eight) Branch hours as needed for Cough. benzonatate Yes [id number] 200mg Take 2 Univers (TESSALON 1-07 capsules ity of PERLES) 100 00:00: [place] mg capsule 00 every 8 Medica l (eight) Branch hours as needed for Cough. benzonatate Yes [id number] 200mg Take 2 Univers (TESSALON 1-07 capsules ity of PERLES) 100 00:00: by [place] mg capsule 00 every 8 Medica l (eight) Branch hours as needed for Cough. citalopram 2020-07 Yes 10mg QD Take 10 [...] each day. Do not crush or chew. tamsulosin 2020-07 Yes QD Take by UT (Flomax) 2-06 mouth 1 Health 0.4 MG 24 09:13: (one) time hr capsule 08 each day. gabapentin 2020-07 Yes [id number] Take by UT (Neurontin) 2-06 [id number] mouth 3 Health 250 MG/5ML 09:13: 3D (three) solution 08 times a day. lovastatin 2020-07 Yes 10mg Take 10 mg U T (Mevacor) 2-06 by mouth Health 10 MG 09:13: every tablet 08 night. lisinopril 2020-07 Yes 10mg QD Take 10 [...] # 180 unknown unit, 3 Refill(s), [facility], 175.26, cm, 12/02/20 9:31:00 CDT, Height, 96.364, kg, 12/02/20 9:31:00 CDT, Weight gabapentin 2020-07 Yes See Memoria 300 mg oral 0-05 Instructio l capsule 13:27: ns, TAKE 1 Herm marcin 00 CAPSULE BY MOUTH TWICE DAILY, # 180 unknown unit, 3 Refill(s), [facility], 175.26, cm, 12/02/20 9:31:00 CDT, Height, 96.364, kg, 12/02/20 9:31:00 CDT, Weight albuterol Yes [id number] 2{puff} Inhale 2 Univers 90 6-16 Puffs ity of mcg/actuati 00:00: every 6 [place] on inhaler 00 (six) Medical hours as Branch needed for Wheezing. benzonatate Yes [id number] 100mg Take 1 Univers (TESSALON 6-16 capsule by ity of FELICITAS) 100 00:00: mouth 3 [place] mg capsule 00 (three) Medica l times Branch daily. albuterol 0 Yes [id number] 2{puff} Inhale 2 Univers 90 6-16 Puffs ity of mcg/actuati 00:00: every 6 [place] on inhaler 00 (six) Medical hours as Branch needed for Wheezing. benzonatate 0 Yes [id number] 100mg Take 1 Univers (TESSALON 6-16 capsule by ity of PERLCharge Payment) 100 00:00: mouth 3 [place] mg capsule 00 (three) Medica l times Branch daily. albuterol Yes [id number] 2{puff} Inhale 2 Univers 90 6-16 Puffs ity of mcg/actuati 00:00: every 6 [place] on inhaler 00 (six) Medical hours as Branch needed for Wheezing. benzonatate 0 Yes [id number] 100mg Take 1 Univers (TESSALON 6-16 capsule by ity of [employer]) 100 00:00: mouth 3 [place] mg capsule 00 (three) Medica l times Branch daily. albuterol Yes [id number] 2{puff} Inhale 2 Univers 90 6-16 Puffs ity of mcg/actuati 00:00: every 6 [place] on inhaler 00 (six) Medical hours as Branch needed for Wheezing. benzonatate 0 Yes [id number] 100mg Take 1 Univers (TESSALON 6-16 capsule by ity of PERLCharge Payment) 100 00:00: mouth 3 [place] mg capsule 00 (three) Medica l times Branch daily. albuterol 0 Yes [id number] 2{puff} Inhale 2 Univers 90 6-16 Puffs ity of mcg/actuati 00:00: every 6 [place] on inhaler 00 (six) Medical hours as Branch needed for Wheezing. benzonatate 0 Yes [id number] 100mg Take 1 Univers (TESSALON 6-16 capsule by ity of PERLCharge Payment) 100 00:00: mouth 3 [place] mg capsule 00 (three) Medica l times Branch daily. albuterol 0 Yes [id number] 2{puff} Inhale 2 Univers 90 6-16 Puffs ity of mcg/actuati 00:00: every 6 [place] on inhaler 00 (six) Medical hours as Branch needed for Wheezing. benzonatate Yes [id number] 100mg Take 1 Univers (TESSALON 6-16 capsule by deloris of FELICITAS) 100 00:00: mouth 3 [place] mg capsule 00 (three) Medica l times Branch daily. albuterol Yes [id number] 2{puff} Inhale 2 Univers 90 6-16 Puffs ity of mcg/actuati 00:00: every 6 [place] on inhaler 00 (six) Medical hours as Branch needed for Wheezing. benzonatate Yes [id number] 100mg Take 1 Univers (TESSALON 6-16 capsule by deloris of FELICITAS) 100 00:00: mouth 3 [place] mg capsule 00 (three) Medica l times Branch daily. albuterol Yes [id number] 2{puff} Inhale 2 Univers 90 6-16 Puffs ity of mcg/actuati 00:00: every 6 [place] on inhaler 00 (six) Medical hours as Branch needed for Wheezing. benzonatate Yes [id number] 100mg Take 1 Univers (TESSALON 6-16 capsule by deloris of FELICITAS) 100 00:00: mouth 3 [place] mg capsule 00 (three) Medica l times Branch daily. benzonatate 2021- No 100mg Take 100 UT (Tessalon) 6-16 05-05 mg by Health 100 MG 00:00: 00:00 mouth. capsule 00 :00 albuterol 2021- No UT 108 (90 6-16 05-05 Health Base) 00:00: 00:00 MCG/ACT 00 :00 inhaler doxycycline 2020- No [id number] 100mg Take 1 Univers hyclate 100 6-16 06-24 tablet by it y of mg tablet 00:00: 04:59 [place] :[place] (two) Medical times Branch daily for 7 days. doxycycline 0 2020- No [id number] 100mg Take 1 Univers hyclate 100 6-16 06-24 tablet by it y of mg tablet 00:00: 04:59 mouth [place] 00 :00 (two) Medical times Branch daily for 7 days. citalopram 2021-0 Yes Univers 20 mg 5-26 ity of tablet 00:00: [place] [facility] lisinopriL 2020-0 Yes Univers 20 mg 5-26 ity of tablet 00:00: [address] lovastatin 2020-0 Yes Univers 20 mg 5-26 ity of tablet 00:00: [address] omeprazole 2020-0 Yes Univers 20 mg 5-26 ity of capsule 00:00: [address] tamsulosin 2020-0 Yes Univers 0.4 mg 24 5-26 ity of hr capsule 00:00: [address] citalopram 2020-0 Yes Univers 20 mg 5-26 ity of tablet 00:00: [address] lisinopriL 2020-0 Yes Univers 20 mg 5-26 ity of tablet 00:00: [address] lovastatin 2020-0 Yes Univers 20 mg 5-26 ity of tablet 00:00: [address] omeprazole 2020-0 Yes Univers 20 mg 5-26 ity of capsule 00:00: [address] tamsulosin 0 Yes Univers 0.4 mg 24 5-26 ity of hr capsule 00:00: [address] citalopram 2020-0 Yes Univers 20 mg 5-26 ity of tablet 00:00: [address] lisinopriL 2020-0 Yes Univers 20 mg 5-26 ity of tablet 00:00: [address] lovastatin 2020-0 Yes Univers 20 mg 5-26 ity of tablet 00:00: [address] omeprazole 2020-0 Yes Univers 20 mg 5-26 ity of capsule 00:00: [address] tamsulosin 2020-0 Yes Univers 0.4 mg 24 5-26 ity of hr capsule 00:00: [address] citalopram 2020-0 Yes Univers 20 mg 5-26 ity of tablet 00:00: [address] lisinopriL 2020-0 Yes Univers 20 mg 5-26 ity of tablet 00:00: [address] lovastatin 2020-0 Yes Univers 20 mg 5-26 ity of tablet 00:00: [address] omeprazole 2020-0 Yes Univers 20 mg 5-26 ity of capsule 00:00: [place] 00 Medical Branch tamsulosin 0 Yes Univers 0.4 mg 24 5-26 ity of hr capsule 00:00: [place] [facility] Branch citalopram 2020-0 Yes Univers 20 mg 5-26 ity of tablet 00:00: [address] Branch lisinopriL 2020-0 Yes Univers 20 mg 5-26 ity of tablet 00:00: [address] Branch lovastatin 2020-0 Yes Univers 20 mg 5-26 ity of tablet 00:00: [address] Branch omeprazole 2020-0 Yes Univers 20 mg 5-26 ity of capsule 00:00: [address] tamsulosin 0 Yes Univers 0.4 mg 24 5-26 ity of hr capsule 00:00: [address] citalopram 2020-0 Yes Univers 20 mg 5-26 ity of tablet 00:00: [address] lisinopriL 2020-0 Yes Univers 20 mg 5-26 ity of tablet 00:00: [address] lovastatin 2020-0 Yes Univers 20 mg 5-26 ity of tablet 00:00: [address] omeprazole 2020-0 Yes Univers 20 mg 5-26 ity of capsule 00:00: [address] tamsulosin 2020-0 Yes Univers 0.4 mg 24 5-26 ity of hr capsule 00:00: [address] citalopram 2020-0 Yes Univers 20 mg 5-26 ity of tablet 00:00: [address] lisinopriL 2020-0 Yes Univers 20 mg 5-26 ity of tablet 00:00: [address] lovastatin 2020-0 Yes Univers 20 mg 5-26 ity of tablet 00:00: [address] omeprazole 2020-0 Yes Univers 20 mg 5-26 ity of capsule 00:00: [address] tamsulosin 2020-0 Yes Univers 0.4 mg 24 5-26 ity of hr capsule 00:00: [address] citalopram 2020-0 Yes Univers 20 mg 5-26 ity of tablet 00:00: [address] lisinopriL 2020-0 Yes Univers 20 mg 5-26 ity of tablet 00:00: [address] lovastatin 2020-0 Yes Univers 20 mg 5-26 ity of tablet 00:00: [address] omeprazole 2021-0 Yes Univers 20 mg 5-26 ity of capsule 00:00: [address] Branch tamsulosin 2021-0 Yes Univers 0.4 mg 24 5-26 ity of hr capsule 00:00: [address] gabapentin 2021-0 Yes Univers 300 mg 5-23 ity of capsule 00:00: [address] gabapentin 2021-0 Yes Univers 300 mg 5-23 ity of capsule 00:00: [address] gabapentin 2021-0 Yes Univers 300 mg 5-23 ity of capsule 00:00: [address] gabapentin 2021-0 Yes Univers 300 mg 5-23 ity of capsule 00:00: [address] gabapentin 2021-0 Yes Univers 300 mg 5-23 ity of capsule 00:00: [address] gabapentin 2021-0 Yes Univers 300 mg 5-23 ity of capsule 00:00: [address] gabapentin 2021-0 Yes Univers 300 mg 5-23 ity of capsule 00:00: [address] gabapentin 2021-0 Yes Univers 300 mg 5-23 ity of capsule 00:00: [address] methocarbam 2020-0 Yes 500 mg, Mem oria ol 500 mg 6-02 PO, l oral tablet 14:13: Bedtime, X [place] 90 day, # 90 tab, 1 Refill(s), Pharmacy: [facility] gabapentin 2020-0 Yes 300 mg, Willie kang 300 MG Oral 6-02 PO, BID, # l Capsule 14:13: 180 cap, 1 Herm marcin 00 Refill(s), Pharmacy: [facility] methocarbam 2020-0 Yes 500 mg, Mem oria ol 500 mg 6-02 PO, l oral tablet 14:13: Bedtime, X Иван 00 90 day, # 90 tab, 1 Refill(s), Pharmacy: [facility] gabapentin 2020-0 Yes 300 mg, Willie kang 300 MG Oral 6-02 PO, BID, # l Capsule 14:13: 180 cap, 1 Herm marcin 00 Refill(s), Pharmacy: [facility] gabapentin 2019-1 No 300 mg, Willie kang 300 MG Oral 0-09 PO, BID, # l Capsule 12:52: 180 cap, 2 Herm marcin 15 Refill(s), Pharmacy: [facility] gabapentin 2019- No 300 mg, Willie kang 300 MG Oral 0-09 PO, BID, # l Capsule 12:52: 180 cap, 2 Herm marcin 15 Refill(s), Pharmacy: [facility] methocarbam 2018- No 500 mg, Mem oria ol 500 mg 0-09 PO, l oral tablet 12:52: Bedtime, X [place] 07 90 day, # 90 tab, 2 Refill(s), Pharmacy: [facility] methocarbam 2018- No 500 mg, Mem oria ol 500 mg 0-09 PO, l oral tablet 12:52: Bedtime, X [place] 07 90 day, # 90 tab, 2 Refill(s), Pharmacy: [facility] methocarbam 2019-0 No 500 mg, Mem oria ol 500 mg 9-06 PO, l oral tablet 16:02: Bedtime, X [place] 12 90 day, # 90 tab, 2 Refill(s), Pharmacy: [facility] methocarbam 2018- No 500 mg, Mem oria ol 500 mg 9-06 PO, l oral tablet 16:02: Bedtime, X [place] 12 90 day, # 90 tab, 2 Refill(s), Pharmacy: [facility] gabapentin 2019-0 No 300 mg, Willie kang 300 MG Oral 9-06 PO, BID, X l Capsule 16:01: 90 day, # Nina nn 59 180 cap, 2 Refill(s), Pharmacy: [facility] gabapentin 2019-0 No 300 mg, Willie kang 300 MG Oral 9-06 PO, BID, X l Capsule 16:01: 90 day, # Nina nn 59 180 cap, 2 Refill(s), Pharmacy: [facility] gabapentin 2019-0 No 300 mg, Willie kang 300 MG Oral 6-07 PO, BID, X l Capsule 14:04: 30 day, # Nina nn 00 60 cap, 8 Refill(s), Pharmacy: [place] [id number] methocarbam 2019-0 No 500 mg, Mem oria ol 500 mg 6-07 PO, l oral tablet 14:04: Bedtime, X Иван 00 30 day, # 30 tab, 3 Refill(s), Pharmacy: [place] [id number] gabapentin 2019-0 No 300 mg, Willie kang 300 MG Oral 6-07 PO, BID, X l Capsule 14:04: 30 day, # Nina nn 00 60 cap, 8 Refill(s), Pharmacy: [place] [id number] methocarbam 2019-0 No 500 mg, Mem oria ol 500 mg 6-07 PO, l oral tablet 14:04: Bedtime, X [place] 00 30 day, # 30 tab, 3 Refill(s), Pharmacy: [place] [id number] tamsulosin 2019-0 Yes 0.4 mg, Willei kang 5-30 PO, Daily, l 14:15: 0 Refill(s) tamsulosin 2019-0 Yes 0.4 mg, Willie kang 5-30 PO, Daily, l 14:15: 0 Refill(s) tamsulosin 2019-0 Yes 0.4 mg, Willie kang 5-30 PO, Daily, l 14:15: 0 Refill(s) Methocarbam 2019-0 Yes 500 mg, Mem oria ol 5-30 PO, PRN l 14:08: gabapentin 2019-0 Yes 300 mg, Willie kang 5-30 PO, PRN, 0 l 14:08: Refill(s) Methocarbam 2019-0 Yes 500 mg, Mem oria ol 5-30 PO, PRN l 14:08: gabapentin 2019-0 Yes 300 mg, Willie kang 5-30 PO, PRN, 0 l 14:08: Refill(s) Lisinopril Lisinopril 2019-0 Yes 1 QD TAKE 1 [place] 20 MG Oral 20 MG Oral 2-12 TABLET P hysici Tablet Tablet 00:00: DAILY lisinopril 2017-0 Yes 20 mg = 1 Me moria 20 mg oral 5-30 tab, PO, l tablet 14:12: Daily, # Иван 00 30 tab, 0 Refill(s) citalopram 2017-0 Yes 20 mg = 1 Me moria 20 mg oral 5-30 tab, PO, l tablet 14:12: Daily, # [place] 00 30 tab, 0 Refill(s) omeprazole Yes 20 mg = 1 Me moria 20 mg oral 1-30 cap, PO, l delayed 20:32: Daily, # Jose n release 00 30 cap, 0 capsule Refill(s) hydrochloro 2015-0 Yes 1 tab, PO, Memoria thiazide-li 1-30 Daily, # l sinopril 25 20:31: 30 tab, 0 H ermann mg-20 mg 00 Refill(s) oral tablet albuterol albuterol No albuterol Roy sulfate HFA sulfate HFA sulfate [place] 90 90 HFA 90 Urology mcg/actuati mcg/actuati mcg/actuat on aerosol on aerosol ion inhaler inhaler aerosol inhaler citalopram citalopram No citalopram [place] 20 mg 20 mg 20 mg [place] tablet tablet tablet Urology doxycycline doxycycline No doxycyclin [place] hyclate 100 hyclate 100 e hyclate [facility] mg tablet mg tablet 100 mg Uro logy tablet gabapentin gabapentin No gabapentin [place] 300 mg 300 mg 300 mg [facility] capsule capsule capsule Urolog y lisinopril lisinopril No lisinopril [place] 20 mg 20 mg 20 mg [place] tablet tablet tablet Urology lovastatin lovastatin No lovastatin [place] 20 mg 20 mg 20 mg [place] tablet tablet tablet Urology omeprazole omeprazole No omeprazole [place] 20 mg 20 mg 20 mg [place] capsule,del capsule,del capsule,de Urology ayed ayed layed release release release tamsulosin tamsulosin No tamsulosin [place] 0.4 mg 0.4 mg 0.4 mg [place] capsule capsule capsule Urolog y Immunizations Ordered Immunization Filled Immunization Date Status Commen ts Source Name Name Influenza, 2021-08-[address] [facility] injectable, 00:00:00 quadrivalent Influenza, 2021-08-[address] [facility] injectable, 00:00:00 quadrivalent Influenza, 2021-08-[address] [facility] injectable, 00:00:00 quadrivalent Influenza, 2021-08-[address] [facility] injectable, 00:00:00 quadrivalent Influenza, 2021-08-[address] [facility] injectable, 00:00:00 quadrivalent Influenza, 2021-08-[address] [facility] injectable, 00:00:00 quadrivalent Influenza, 2021-08-[address] [facility] injectable, 00:00:00 quadrivalent Influenza, 2021-08-[address] [facility] injectable, 00:00:00 quadrivalent COVID-19, mRNA, COVID-19, mRNA, 2021-03-03 Completed [place] LNP-S, PF, 100 LNP-S, PF, 100 00:00:00 Urolog y mcg/0.5 mL dose mcg/0.5 mL dose COVID-19 Moderna 18 2021-03-03 [facility] 00:00:00 COVID-19 Moderna 18 2021-03-03 Completed [facility] Vacc[facility] 00:00:00 COVID-19 Moderna 18 2021-03-03 Completed [facility] Vacc[facility] 00:00:00 COVID-19 Moderna 18 2021-03-03 Completed [facility] Vacc[facility] 00:00:00 COVID-19 Moderna 12 2021-03-03 Completed [facility] Vacc[facility] 00:00:00 (LAST WAXER) COVID-19 Moderna 12 2021-03-03 Completed [facility] Vacc[facility] 00:00:00 (LAST WAXER) COVID-19 Moderna 12 2021-03-03 Completed [facility] Vacc[facility] 00:00:00 (LAST WAXER) COVID-19 Moderna 2021-03-03 [facility]pleted [facility]) 00:00:00 [id number] 2020-08-24 Completed Willie rial [id number] 19:07:55 Herm marcin <sup>1, 2</sup> [id number] 2020-08-24 Completed Willie rial [id number] 19:07:55 Herm marcin <sup>1, 2</sup> [id number]-[id number] 2020-08-24 Completed Willie rial [id number] 00:00:00 Herm marcin [id number]-19mR 2020-08-24 Completed Willie rial [id number] 00:00:00 Herm marcin [id number]-[id number]-19mR 2020-07-25 Completed Willie rial NABNT-[id number] 00:00:00 Herm marcin XFTE-[id number]-19mR 2020-07-25 Completed Willie rial [id number] 00:00:00 Kelly burch Vital Signs Vital Name Observation Time Observation Value Comments Source Systolic blood 2023-02-15 134 mm[Hg] [facility] of pressure 18:50:00 [facility] Diastolic blood 2023-02-15 86 mm[Hg] University o f pressure 18:50:00 [facility] Heart rate 2023-02-15 81 /min University of 18:50:00 [facility] Body temperature 2023-02-[address] University of 18:50:00 [facility] Respiratory rate 2023-02-15 20 /min University of 18:50:00 [facility] Body height 2023-02-15 175.3 cm University of 18:50:00 [facility] Body weight 2023-02-15 100.046 kg University of 18:50:00 [facility] BMI 2023-02-15 32.57 kg/m2 University of 18:50:00 [facility] Oxygen saturation 2023-02-15 98 /min University of in Arterial blood 18:50:00 [place] [facility] by Pulse oximetry Branch Systolic blood 2023-01-23 159 mm[Hg] University of pressure 14:40:00 [facility] Diastolic blood 2023-01-23 90 mm[Hg] University o f pressure 14:40:00 [facility] Heart rate 2023-01-23 68 /min University of 14:40:00 [facility] Body temperature 2023-01-[address] University of 14:40:00 [facility] Respiratory rate 2023-01-23 18 /min University of 14:40:00 [facility] Body height 2023-01-23 175.3 cm University of 14:40:00 [facility] Body weight 2023-01-23 97.58 kg University of 14:40:00 [facility] BMI 2023-01-23 31.77 kg/m2 University of 14:40:00 [facility] Oxygen saturation 2023-01-23 98 /min University of in Arterial blood 14:40:00 [place] [facility] by Pulse oximetry Branch Systolic blood 2022-03-01 126 mm[Hg] [facility] pressure 13:51:00 Diastolic blood 2022-03-01 77 mm[Hg] [facility] pressure 13:51:00 Heart rate 2022-03-01 66 /min [facility] 13:51:00 Body temperature 2022-03-[address] [facility] 13:51:00 Body weight 2022-03-01 96.435 kg [facility] 13:51:00 BMI 2022-03-01 30.95 kg/m2 [facility] 13:51:00 Systolic blood 2021-11-04 128 mm[Hg] [facility] pressure 18:51:00 Diastolic blood 2021-11-04 84 mm[Hg] [facility] pressure 18:51:00 Heart rate 2021-11-04 74 /min [facility] 18:51:00 Body temperature 2021-11-[address] [facility] 18:51:00 Body weight 2021-11-04 96.163 kg [facility] 18:51:00 BMI 2021-11-04 30.86 kg/m2 [facility] 18:51:00 Oxygen saturation 2021-11-04 96 /min [facility] in Arterial blood 18:51:00 by Pulse oximetry BP Diastolic 2021-05-05 78 mm[Hg] [facility] 00:00:00 Urology Height 2021-05-05 69 [in_i] [facility] 00:00:00 Urology BMI (Body Mass 2021-05-05 31 kg/m2 [facility] Index) 00:00:00 Urology BP Systolic 2021-05-05 145 mm[Hg] [place] [facility] 00:00:00 Urology Body Weight 2021-05-05 210 [lb_av] [facility] 00:00:00 Urology Systolic blood 2020-12-16 127 mm[Hg] [facility] 15:55:00 [facility] Diastolic blood 2020-12-16 72 mm[Hg] University o pressure 15:55:00 [facility] Heart rate 2020-12-16 83 /min [facility] 15:54:00 [facility] Body temperature 2020-12-[address] [facility] 15:54:00 [facility] Respiratory rate 2020-12-16 18 /min [facility] 15:54:00 [facility] Body height 2020-12-16 176.5 cm [facility] 15:54:00 [facility] Body weight 2020-12-16 96.616 kg [facility] 15:54:00 [facility] BMI 2020-12-16 31.00 kg/m2 [facility] 15:54:00 [facility] Oxygen saturation 2020-12-16 96 /min [facility] in Arterial blood 15:54:00 [facility] by Pulse oximetry Branch Systolic (mm Hg) 2022-12-02 [facility] 14:14:00 Diastolic (mm Hg) 2022-12-02 [facility] Mikey ermann 14:14:00 Heart Rate 2022-12-02 [facility] Jose n 14:14:00 Height 2022-12-02 5 [ft_i] [facility] n 14:14:00 Weight 2022-12-02 [facility] Jose n 14:14:00 BMI Calculated 2022-12-02 [facility] marcin 14:14:00 Systolic (mm Hg) 2021-12-02 [facility] Bhanu rmann 13:55:00 Diastolic (mm Hg) 2021-12-02 [facility] Mikey ermann 13:55:00 Heart Rate 2021-12-02 [facility] Jose n 13:55:00 Respitory Rate 2021-12-02 [facility] marcin 13:55:00 Height 2021-12-02 175.26 cm [facility] Jose n 13:55:00 Weight 2021-12-02 [facility] Jose n 13:55:00 BMI Calculated 2021-12-02 [facility] 13:55:00 Systolic (mm Hg) 2020-12-02 [facility] B[facility]u rmann 14:18:00 Diastolic (mm Hg) 2020-12-02 [facility] Mikey ermann 14:18:00 Heart Rate 2020-12-02 [facility] Jose n 14:18:00 Respitory Rate 2020-12-02 [facility] 14:18:00 Height 2020-12-02 175.26 cm [facility] Jose n 14:18:00 Weight 2020-12-02 [facility] Jose n 14:18:00 BMI Calculated 2020-12-02 [facility] mar[facility] 14:18:00 Systolic (mm Hg) 2019-12-03 [facility] B[facility] r[facility] 14:01:00 Diastolic (mm Hg) 2019-12-03 [facility] Mikey ermann 14:01:00 Heart Rate 2019-12-03 [facility] Jose n 14:01:00 Respitory Rate 2019-12-03 [facility] mar[facility] 14:01:00 Height 2019-12-03 177.8 cm [facility] Jose n 14:01:00 Weight 2019-12-03 [facility] n 14:01:00 BMI Calculated 2019-12-03 [facility] 14:01:00 BP Systolic 2019-01-21 142 mm[Hg] Location: RUE; [facility] 14:41:00 Position: Sitting BP Diastolic 2019-01-21 [...] [facility] 14:30:00 Systolic (mm Hg) 2018-11-[address] [facility] He rmann 13:58:00 Diastolic (mm Hg) 2018-11-[address] [facility] H ermann 13:58:00 Heart Rate 2018-11-29 [facility] Jose n 13:58:00 Weight 2018-11-29 [facility] n 13:58:00 Height 2018-11-29 175.26 cm [facility] n 13:58:00 Respitory Rate 2018-11-29 [facility] 13:58:00 BMI Calculated 2018-11-29 [facility] 13:58:00 BP Systolic 2018-09-28 118 mm[Hg] Location: [...] Artery; O2 SAT 2018-09-28 97 % Source: RA [facility] 15:20:00 BP Systolic 2018-08-14 144 [...] 08:01:00 Temperature 2017-05-16 97.5 [degF] Method: Oral [facility] 08:01:00 Heart Rate 2017-05-16 75 /min [facility] 08:01:00 Respiration Rate 2017-05-16 14 /min [facility] 08:01:00 Procedures Procedure Date / Time Performing Clinician Source Performed XR CHEST 2 VW 2023-02-15 19:09:42 Steven [facility] o f [facility] OCT, RETINA - OU - BOTH 2022-06-23 15:34[facility] RETINA - OU - BOTH 2021-12-16 13:37[facility]OTOS - OU - 2021-12-16 13:37:41 [facility] BOTH EYES PTOSIS VISUAL FIELD, 2021-06-21 14:40:37 Garret [facility] LIMITED - OU - BOTH EYES Ore-Ofeoluwatomi CT, abdomen + pelvis, 2021-05-05 00:00:00 [place] w/wo contrast Urology XR CHEST 2 VW 2020-12-16 17:31:02 Loni Batista [facility] COVID-19 (MOLECULAR 2020-12-16 16:45:00 Loni Batista [facility] NUCLEIC ACID AMPLIFICATION) Polysomnography, sleep 2018-08-14 00:00:00 [facility] staging with 4+ parameters of sleep, attended by a technologist [U] XRAY THORACOLUMBAR 2017-12-12 00:00:00 [facility] SPINE, SCOLIOSIS STUDY (W/ SUPINE AND ERECT) [id number] Physical Therapy 2017-12-12 00:00:00 [facility] [[facility]] EMG 2017-06-07 00:00:00 [facility] MRI Spine lumbar wo 2017-06-07 00:00:00 [facility] cialup[place] contrast [id number] Diagnostic Colonoscopy 2014-07-03 00:00:00 [place] [facility] Carpal Tunnel Surgery 2014-07-03 00:00:00 [place] [facility] Hernia Repair W/mesh 1990-07-03 00:00:00 [facility] Urology History of Carpal tunnel [facility] surgery Repair of umbilical [facility] hernia Colonoscopy [facility] Plan of Care Planned Activity Planned Date [...] Date/Time Type Type Clinicians Facility Department ID 2022-12-22 Outpatient [facility] [id number] [place] 09:08:51 [id number] [facility] 2022-12-12 Outpatient [facility] [id number] [place] 17:10:52 [id number] [facility] 2022-06-23 Outpatient [facility] [id number] [place] 08:34:10 [id number] [facility] 2022-06-15 Outpatient [facility] [id number] [place] 19:05:21 [id number] [facility] 2022-06-08 Outpatient [facility] [id number] [place] 09:23:21 [id number] [facility] 2022-06-01 Outpatient [facility] [id number] [place] 09:46:43 [id number] [facility] 2022-05-31 Outpatient [facility] [id number] [place] 13:51:16 [id number] [facility] 2021-06-21 Outpatient GARRET [facility] [id number] [place] 09:30:23 [facility] 2021-06-21 Outpatient [facility] [id number] [place] 07:43:34 Health 2021-06-07 Outpatient GARRET, [facility] [id number] [place] 10:50:51 ISATUSTAN [facility] ATOMI 2021-05-14 Outpatient TAY, [facility] [id number] [place] 08:23:17 [facility] 2023-12-28 2023-12-28 Outpatient HUBER, [facility] [id number] [place] 08:00:00 08:00:00 STEFF Murillo h 2023-12-07 2023-12-07 Outpatient MHIE MHIE [id number] [facility] 09:00:00 09:00:00 07 l Иван 2023-02-15 2023-02-15 Outpatient R [facility] [id number] [facility] 14:01:02 23:59:[address] [facility] 2023-02-15 2023-02-15 [facility] [id number] [facility] 14:01:02 23:59:00 Encounter [facility] [id number] ity of [place] [id number] Andrew as ELLY?BLEA [id number] [facility] KONSTANTIN [address] MEDICAL OFFICE [facility] 2023-02-15 2023-02-15 Urgent Hakannjpadmini [facility] [id number] Univers 14:00:00 14:12:13 Care Unknown, [facility] HEALTH [id number] ity of [place] [id number] Andrew as ELLY?BLEA [id number] [facility] [address] MED[facility] OFF[facility] 2023-02-15 2023-02-15 Telephone [facility] [id number] Univers 00:00:00 00:00:00 Rantx abusix [id number] it y of [place] [id number] Andrew as ELLY?BLEA [id number] [facility] [address] MEDICAL OFFICE BU[facility]ING 2023-01-23 2023-01-23 Urgent Bob Steve [facility] [id number] [facility] 09:40:00 10:00:00 Care Unknown, Attending [id number] [facility] [id number] Andrew as ELLY?BLEA [id number] [facility] [address] MEDICAL OFFICE [facility] 2023-01-23 2023-01-23 Outpatient Madonna [facility] [id number] [facility] 09:40:00 09:40:00 REENU ity [facility] 2022-12-22 2022-12-22 Office Huber, [facility] 6400 [id number] [place] 09:30:00 14:31:43 Visit Steff MALIK [id number] Health 9.2.7.2.686 [id number] 2022-12-02 2022-12-03 Outpatient MHIE MNA [id number] Memoria 14:15:00 04:59:59 Neurology 06 aurelio Oates 2022-12-02 2022-12-02 Outpatient Chapo, MHMISCHER MHMISCHER [id number] 09:15:00 23:59:59 Phani 06 Terrell 2022-12-02 2022-12-02 Outpatient MHIE MHIE [id number] Memoria 09:15:00 09:15:00 06 aurelio Oates 2022-12-02 2022-12-02 Outpatient MHIE MHIE [id number] Memoria 09:15:00 09:15:00 06 aurelio Oates 2022-06-23 2022-06-23 Office HUBER, CESILIA 6400 [id number] [place] 09:30:00 13:07:13 Visit STEFF MALIK [id number] Health 9.2.7.2.686 [id number] 2022-06-23 2022-06-23 Outpatient [facility] [id number] [place] 09:20:00 12:57:22 Health 2022-06-23 2022-06-23 Outpatient HUBER, [facility] [id number] [place] 08:15:00 08:15:00 STEFF moody 2022-06-08 2022-06-08 Office TAY, [facility]TP 6400 [id number] [place] 10:00:00 15:34:[address] [id number] Health 9.2.7.2.686 [id number] 4 2022-03-31 2022-03-31 Outpatient FIGUEROA, [facility] [id number] [place] 13:00:00 13:00:00 [facility] 2022-03-01 2022-03-01 Office Asuncion, UTP [id number] [place] 09:00:00 09:54:58 Visit Praveen SHEARER 350.1.13.58 [place] 9.2.7.2.686 MULTI [id number] SPECIALTY 2 2021-12-17 2021-12-17 Telephone CESILIA Juarez [id number] [place] 00:00:00 00:00:00 Jose CONKLINA 350.1.13.58 [place]th [place] 9.2.7.2.686 MULTI [id number] SPECIALTY 6 2021-12-17 2021-12-17 Telephone Obey [facility] [id number] [place] 00:00:00 00:00:00 Jose SHEARER 350.1.13.58 [place]th [place] 9.2.7.2.686 MULTI [id number] SPECIALTY 6 2021-12-16 2021-12-16 Office Timoteoskyedeborah, UTP 6400 [id number] [id number] [place] 08:00:00 09:10:19 Visit Steff ISLAS [id number] Health 9.2.7.2.686 [id number] 2021-12-02 2021-12-03 Outpatient nullFlavo MNA [id number] Memoria 14:00:00 04:59:59 r Neurology 05 l Erika Oates 2021-12-02 2021-12-03 Outpatient nullFlavo MNA [id number] Memoria 14:00:00 04:59:59 r Neurology 05 l Erika Oates 2021-12-02 2021-12-02 Outpatient Chapo MHMISCHER MHMISCHER [id number] 09:00:00 23:59:59 Phani Tejada 2021-12-02 2021-12-02 Outpatient MHIE MHIE [id number] Memoria 09:00:00 09:00:00 05 l Иван 2021-11-09 2021-11-10 Outpt Diag nullFlavo [facility] [id number] Memoria 19:26:00 04:59:00 Services r Outpatient 00 l Imaging Иван [place] 2021-11-09 2021-11-10 Outpt Diag nullFlavo [facility] [id number] Memoria 19:26:00 04:59:00 Services r Outpatient 00 l Imaging Иван [place] 2021-11-09 2021-11-09 Outpatient Obey, MHOIP MHOIP [id number] 14:26:00 23:59:00 Joseyuniel Antoine 2021-11-04 2021-11-04 Office Juarez, UTP 1.2.840.114 [id number] [place] 13:40:00 14:26:51 Visit Jose SHEARER 350.1.13.58 [facility] 9.2.7.2.686 [facility] [id number] [facility] 6 2021-10-21 2021-10-21 Office Huber, UTP 6400 1.2.840.114 [id number] [place] 09:00:00 10:17:[address] 350.1.13.58 Health 9.2.7.2.686 [id number] 2021-10-07 2021-10-07 Office Huber, UTP 6400 1.2.840.114 [id number] [place] 08:00:00 08:15:[address] 350.1.13.58 Health 9.2.7.2.686 [id number] 4 2021-09-30 2021-09-30 Office Huber, UTP 6400 1.2.840.114 [id number] [place] 09:45:00 15:56:[address] 350.1.13.58 Health 9.2.7.2.686 [id number] 4 2021-07-09 2021-07-09 Outpatient R [facility] [id number] Univers 13:40:00 13:56:56 RUSSELL puentes o f [facility] 2021-07-09 2021-07-09 Outpatient Madonna [facility] [id number] [facility] 13:40:00 13:40:00 TANIYA puentes [facility] 2021-06-21 2021-06-21 Office CESILIA Combs 6400 [id number] [place] 08:30:00 09:29:17 Visit Celestino ISLAS 350.1.13.58 Health atomi 9.2.7.2.686 [id number] 4 2021-06-21 2021-06-21 Office Garret CESILIA 6400 [id number] [place] 08:30:00 09:29:[address] 350.1.13.58 Health atomi 9.2.7.2.686 [id number] 4 2021-06-14 2021-06-14 Outpatient Goldfarb_D [facility] [address] [place] 12:41:00 12:41:00 [id number] [facility] 2021-05-18 2021-05-18 Outpatient Goldfarb_D [facility] [address] [place] 09:52:00 09:52:00 [id number] [facility] 2021-05-14 2021-05-14 Outpatient Goldfarb_D [facility] [address] [place] 10:45:00 10:45:00 [id number] [facility] 2021-05-06 2021-05-06 Outpatient Goldfarb_D [facility] 4577 [place] 11:49:00 11:49:00 [id number] [facility] 2021-05-05 2021-05-05 Outpatient Goldfarb_D [facility] [address] [place] 10:58:00 10:58:00 [id number] [facility] 2021-05-05 2021-05-05 [facility] [place] - [id number] H alexia 00:00:00 00:00:00 Milagro Leslie: [address] ANGELO Malik - [address], [place] [address] , Ph. 2021-05-05 2021-05-05 Outpatient Sophia, U U [id number] 00:00:00 00:00:00 [place] Krishnamurthy [id number] 2021-02-15 2021-02-15 Outpatient Goldfarb_D [id number] 93 [place] 11:26:00 11:26:00 [id number] ro Urology 2021-02-08 2021-02-08 Outpatient Goldfarb_D [facility] [id number] 93 [place] 10:11:00 10:11:00 [id number] Milagro Urologglenda 2020-12-16 2020-12-16 [facility] 1.2.840.114 [id number] Univers 11:45:00 23:59:00 Encounter Loni Crocker 350.1.13.10 ity [facility] 4.2.7.2.686 [facility] [id number] [address] 2020-12-16 2020-12-16 Urgent Provider, [facility] 1.2.840.114 [id number] Univers 10:21:38 11:55:32 Care Loni Batista [facility].1.13.10 [facility] 4.2.7.2.686 Andrew [facility] [id number] [facility] [address] 2020-12-16 2020-12-16 Outpatient Madonna [facility] [id number] Univers 10:20:00 10:20:00 LONI puentes [facility] 2020-12-16 2020-12-16 Letter Doctor REYES 1.2.840.114 [id number] Univers 00:00:00 00:00:00 (Out) Unassigned, CHANTEL 350.1.13.10 ity of [place] [facility] 4.2.7.2.686 Andrew as [id number] [address] 2020-12-16 2020-12-16 Letter Doctor REYES 1.2.840.114 [id number] Univers 00:00:00 00:00:00 (Out) Unassigned, CHANTEL 350.1.13.[address] [place] [facility] 4.2.7.2.686 Andrew as [id number] [address] 2020-12-02 2020-12-03 Outpatient nullFlavo MNA [id number] Memoria 14:00:00 04:59:59 r Neurology 04 l Erika Oates 2020-12-02 2020-12-03 Outpatient nullFlavo MNA [id number] Memoria 14:00:00 04:59:59 r Neurology 04 l Erika Oates 2020-12-02 2020-12-02 Outpatient MADI Cowan [id number] 09:00:00 23:59:59 Phani 04 Terrell 2020-12-02 2020-12-02 Ambulatory nullFlavo MNA [id number] Memoria 14:00:00 14:00:00 Pre-Reg r Neurology 03 l Erika Oates 2020-12-02 2020-12-02 Ambulatory nullFlavo MNA [id number] Memoria 14:00:00 14:00:00 Pre-Reg r Neurology 03 l Erika Oates 2020-12-02 2020-12-02 Outpatient MHIE MHIE [id number] Memoria 09:00:00 09:00:00 04 aurelio Oates 2020-12-02 2020-12-02 Outpatient MHIE MHIE [id number] Memoria 09:00:00 09:00:00 03 aurelio Oates 2020-12-02 2020-12-02 Outpatient MADI Cowan [id number] 09:00:00 09:00:00 Phani 03 Terrell 2019-12-03 2019-12-04 Outpatient nullFlavo MNA [id number] Memoria 14:00:00 04:59:59 r Neurology 02 aurelio Oates 2019-12-03 2019-12-04 Outpatient nullFlavo MNA [id number] Memoria 14:00:00 04:59:59 r Neurology 02 l Erika Oates 2019-12-03 2019-12-03 Outpatient Kreelise, MHMISCHER MHMISCHER [id number] 09:00:00 23:59:59 Phani 02 Terrell 2019-12-03 2019-12-03 Outpatient MHIE MHIE [id number] Memoria 09:00:00 09:00:00 02 aurelio Oates 2019-07-04 2019-07-04 [facility] [id number] [place] 13:00:00 13:00:00 t; JOSE JUAREZ Physi Stephanie Hines M.D. 2019-01-21 2019-01-21 [facility] [id number] [place] 14:40:00 14:40:00 t; JOSE JUAREZ lty - Physi Stephanie Hines M.D. 2018-12-03 2018-12-03 [id number] [place] 14:40:00 14:40:00 t; JOSE JUAREZ lty - Physi Stephanie Hines M.D. 2018-11-29 2018-11-30 Outpatient nullFlavo MNA [id number] Memoria 14:00:00 04:59:59 r Neurology 01 l Erika Oates 2018-11-29 2018-11-30 Outpatient nullFlavo MNA [id number] Memoria 14:00:00 04:59:59 r Neurology 01 l Erika Oates 2018-11-29 2018-11-29 Outpatient Chapo, MHMISCHER MHMISCHER [id number] 09:00:00 23:59:59 Phani Terrell 2018-11-29 2018-11-29 Outpatient MHIE MHIE [id number] Memoria 09:00:00 09:00:00 01 aurelio Oates 2018-09-28 2018-09-28 Barbara [facility] [place] [id number] [place] 15:40:00 15:40:00 t; JOSE JUAREZ [facility] Physi Stephanie Hines M.D. 2018-08-14 2018-08-14 [facility] CESILIA JUAREZ [place] [id number] [place] 14:20:00 14:20:00 t; JOSE JUAREZ [facility] Stephanie HUDSON M.D. 2017-12-12 2017-12-12 AppointCESILIA Sapp [facility] [id number] [place] 11:00:00 11:00:00 t; HEIDY GONZALEZ, Orthopedics Hiro grijalva M.D. 2017-11-29 2017-11-29 Outpatient [facility] [id number] Memoria 09:00:00 09:00:00 00 l Иван 2017-11-29 2017-11-29 Outpatient IE IE [id number] Memoria 09:00:00 09:00:00 00 l Иван 2017-08-08 2017-08-08 [facility] CESILIA GONZALEZ [facility] [id number] [place] 13:30:00 13:30:00 t; HEIDY GONZALEZ Physici SHAH-NAWAZ M.D. ans, M.D. 2017-07-11 2017-07-[address] [facility] [id number] [place] 14:30:00 14:30:00 t; Stephanie JULIAN ans SUUR, M.D. 2017-05-16 2017-05-[address] [facility] [id number] [place] 08:00:00 08:00:00 t; Stephanie JULIAN ans SUUR, M.D. Results Test Description Test Time Test Comments Results Result Comments Source COVID-19 (MOLECULAR TESTING 2020-12-17 04:19:19 NUCLEIC ACID AMPLIFICATION) Test Item Value Reference Range Interpretation Comme nts SARS-CoV-2 NAAT (test code = Not Detected Not Detected 02495-4) MARIEL (test code = MARIEL) Hologic Aptima SARS-CoV-2 Assay is a nucleic acid amplification test intended for the qualitative detection of RNA from SARS-CoV-2 from nasopharyngeal (SIGNAL APPRENTICE) specimens. ?It is used under Emergency Use [...] indicated. Lab Interpretation (test code = Normal 08584-4) [facility] 2 [id number] 17:42:55HISTORY: Cough for 4 weeks. TECHNIQUE: 2 [...] therefore, noncontrast enhanced CT scan of the chestrequested.[facility], Radiant Results InftUser - 12/16/2020 12:43 PM [...] therefore, noncontrast enhanced CT scan of the chestrequested.[facility][U] XRAY THORACOLUMBAR SPINE, SCOLIOSIS STUDY (W/ SUPINE AND ERECT) [id number] 11:25:00Images acquired, not reported on this accession number.[facility] Spine lumbar wo contrast [id number] 10:47:00Exam: MRI lumbar spine without contrast.INDICATION: Radiculopathy. [...] (test code = Completed) DONE [facility] Physicians Notes Date/Time Note Provider Source 2023-02-15 17:05:41-00:00 Formatting of this note migh t be different from the original. [facility] Reviewed XRAY results with patient, he will need to follow up with PCP or pulmonary for his lung nodule. Likely will need CT chest. He states understanding and has no further questions at this time XR CHEST 2 VW Result Date: 02/15/2023 EXAM: XR CHEST 2 VW COMPARIS ON: Chest x-ray on 12/16/2020 HISTORY: 72-year-old male with active smoking history presents for cough, SOB x 1 month FINDINGS: Lungs: The lungs are adequately expanded. Lobul ated right hemidiaphragm. Gr ossly unchanged appearance of the nodule. No focal opacity. No pleural abnormality. Heart/Mediastinum: Mild cardiomegaly. Calcified aortic arch. Bones and soft tissues: Osteopenia. Degenerative changes of the spine. A similar in size nodule. Th is can be further evaluated with a dedicated CT chest exam if patient is at increased risk for lung cancer has a smoking history. No radiographic evidence of acute cardiopulm onary process. IEv MD., have reviewed this study and agree with the above report. 2021-11-09 14:57:00-00:00 Radiation Dose CTDIVOL = 0 ( mGy): DLP = 668.57 (mGy-cm) MARCELL Mueller PROCEDURE INFORMATION: Exam: CT Chest Without Contrast; Diagnostic Exam date and time: 11/09/2021 3:01 PM Age: 71 years old Clinical indication: Solitary pulmonary nodule; Additional info: /r91.1 solitary pulmonary nodule; R05.9 cough, unspecif ied TECHNIQUE: Imaging protocol: Diagnostic computed tomography of the chest without contrast. Radiation optimization: All CT scans at this facility use at least one of these dose optimization techniques: automated exposure control; mA and/or kV adjustment per patient size (includes targeted e xams where dose is matched to clinical indication); or iterative reconstructio n. COMPARISON: No relevant prior studies available. RADIATION DOSE METRICS: Total DLP (mGy-cm): 668.57 FINDINGS: Lungs: Minimal right middle lobe and lingular sc arring. Pleural spaces: Unremarkable. No pneumothorax. N o pleural effusion. Heart: Heart size normal. Mild bilateral coronar y atherosclerotic calcific disease is present. Lymph nodes: Unremarkable. No enlarged lymph nod es. Vasculature: Mild scattered calcified pl aque is present in the thoracic aorta. Liver: Hepatic multiple simple incidenta l cysts noted, coronal further imaging follow-up. Adrenal glands: Right adrenal 1.7 cm nodule shanti uring less than 10 Hounsfield units in attenuation. Left adrenal gland is norm al. Bones/joints: Midthoracic spine vertebral body b [place]. Minimal levoscoliosis of the thoracolumbar spinal juncti on region with mild degenerative osteophytosis. Soft tissues: Unremarkable. IMPRESSION: 1. No pulmonary nodule. 2. Right adrenal adenoma, 1.7 cm. COMMENTS: Consistent with the [employer]'s Incidental Findings Committee white paper (J Am Francisco Radiol 2017): A ny incidental adrenal lesion less than or equal to 1 cm is likely benign. No follow-up imaging is recommended for these lesions per consensus nancy mmendations based on imaging criteria. Further lab evaluation could be pursue d if warranted based on clinical findings. David Aceves MD On 11/10/2021 08:33:28; [id number]
[2023-02-23 11:38] LABS: Absolute Lymphocytes (CBC) 1.3 K/uL (0.7-4.9); Hematocrit 43.8 % (39.6-49.0); Lymphocytes % 19.7 % (15.3-44.8); MCV 91.8 fL (80-100); MPV 6.9 fL (7.6-11.3); Platelets 206 thou/uL (152-406); RBC Red Blood Cell Count 4.77 M/uL (4.33-5.43)
[2023-02-23 11:41] LABS: Protime INR 1.12
[2023-02-23 11:51] LABS: SARS-CoV-2 Antigen Rapid Res Negative (Negative)
[2023-02-23] MEDS ORDERED: predniSONE 20 MG TAB ONE (11:51)
[2023-02-23] MEDS ORDERED: METHYLPREDNISOLONE 125 MG INJ ONE (11:51)
[2023-02-23] MEDS ORDERED: LEVALBUTEROL 1.25 MG/3 ML NEB ONE (11:51)
[2023-02-23] MEDS ORDERED: IPRATROPIUM BROM 0.5MG/2.5ML ONE (11:51)
[2023-02-23] MEDS ORDERED: NA CHLORIDE 0.9% 1,000 ML ONE (11:52)
[2023-02-23] MEDS ORDERED: FAMOTIDINE 20 MG/2 ML VIAL IV ONE (11:52)
[2023-02-23 11:56] LABS: Albumin 3.8 g/dL (3.4-5.0); Bilirubin Direct 0.3 mg/dL (0-0.2); Bilirubin Indirect, Calculated 1.2 mg/dL (0.2-0.8); Bilirubin Total 1.5 mg/dL (0.2-1.0); Magnesium 2.1 mg/dL (1.6-2.4); Potassium 3.5 mEq/L (3.5-5.1); Protein, Total 6.8 g/dL (6.4-8.2); Troponin High Sensitivity 6.1 pg/mL (<58.9)
--- NOTE | 2023-02-23 12:29 | RAD REPORT ---
EXAM DESCRIPTION: RAD - Chest Single View - 02/23/2023 11:59 am CLINICAL HISTORY: COPD Chest pain. COMPARISON: Chest Single View dated 07/07/2022 FINDINGS: Portable technique limits examination quality. Mild interstitial pulmonary edema. The heart is moderately enlarged in size. No displaced fractures. IMPRESSION: Mild CHF.
--- NOTE | 2023-02-23 13:01 | RAD REPORT ---
EXAM DESCRIPTION: CT - Chest For Pe Angio - 02/23/2023 12:33 pm CLINICAL HISTORY: Chest pain COMPARISON: None. TECHNIQUE: Dynamically enhanced axial 3 mm thick images of the chest were obtained during administra tion of 100 mL Isovue 370 IV contrast. Coronal and oblique reconstruction images were generated and r eviewed. Exam utilizes a protocol for optimal evaluation of pulmonary arterial tree. Maximum intensity projections 3D imaging was utilized All CT scans are performed using dose optimization technique as appropriate and may include automated exposure control or mA/KV adjustment according to patient size. FINDINGS: A pulmonary embolus is not seen. A thoracic aortic aneurysm is not noted. A pleural effusion is not seen. A pericardial effusion is not seen. A lung consolidation is not present. Several hepatic cysts Small area sclerosis within midthoracic vertebral body IMPRESSION: Negative for a pulmonary embolism. Small area sclerosis within a midthoracic vertebral body is nonspecific. A followup x-ray of the thor acic spine recommended in 3 months to assess stability
--- NOTE | 2023-02-23 13:57 | ER ---
Nurse's Notes [facility] Name: Frandy Martin Age: 72 yrs Sex: Male : 1950 Arrival Date: 02/23/2023 Time: 10:54 Bed 5 Private MD: Diagnosis: Dyspnea;COPD/ Chronic obstructive pulmonary disease, unspecified;Essential (primary) hypertension Presentation: 02/23 10:57 Coronavirus screen: Vaccine status: Patient reports receiving the 2nd dose of the covid bp vaccine. Client denies travel out of the [place] in the last 14 days. At this time, the client does not indicate any symptoms associated with coronavirus-19. Ebola Screen: Patient denies travel to an Ebola-affected area in the 21 days before illness onset. Initial Sepsis Screen: Does the patient meet any 2 criteria? No. Patient's initial sepsis screen is negative. Does the patient have a suspected source of infection? No. Patient's initial sepsis screen is negative. Risk Assessment: Do you want to hurt yourself or someone else? Patient reports no desire to harm self or others. Onset of symptoms was December 31, 2022. 10:57 Method Of Arrival: Wheelchair bp 10:57 Acuity: MAURILIO 3 bp 10:57 Chief complaint: Patient states: SOB since December 31. iw Triage Assessment: 11:00 General: Appears in no apparent distress. comfortable. Respiratory: Respiratory pattern iw is regular, symmetrical. Respiratory: Onset: The symptoms/episode began/occurred December 31, the patient has mild shortness of breath. 11:00 General: Appears in no apparent distress. iw Historical: - Allergies: 10:56 PENICILLINS; bp - PMHx: 10:56 Hypertensive disorder; bp - Immunization history:: Adult Immunizations up to date, Client reports receiving the 2nd dose of the Covid vaccine. - Social history:: Smoking status: Patient reports the use of cigarette tobacco products, Patient/guardian denies using tobacco, Stopped _ months ago 2. Screenin:04 [facility] ED Fall Risk Assessment (Adult) Score/Fall Risk Level 0 - 2 = Low Risk. Abuse iw screen: Denies threats or abuse. Nutritional screening: No deficits noted. Tuberculosis screening: No symptoms or risk factors identified. Assessment: 11:04 General: Appears in no apparent distress. Behavior is calm, cooperative. General: iw Denies fever, chills. Pain: Complains of pain in right clavicle, left clavicle, anterior aspect of right upper chest and anterior aspect of left upper chest. Neuro: Level of Consciousness is awake, alert, obeys commands, Oriented to person, place, time, situation, Moves all extremities. Full function. Cardiovascular: Rhythm is regular. Respiratory: Reports shortness of breath on exertion cough that is productive, Airway is patent Respiratory effort is even, unlabored, GI: Abdomen is non-distended. Derm: Skin is intact, is healthy with good turgor. Musculoskeletal: Range of motion: intact in all extremities. 12:58 Reassessment: Patient appears in no apparent distress at this time. Patient and/or iw family updated on plan of care and expected duration. Pain level reassessed. Patient is alert, oriented x 3, equal unlabored respirations, skin warm/dry/pink. 13:17 Reassessment: Patient appears in no apparent distress at this time. Patient and/or iw family updated on plan of care and expected duration. Pain level reassessed. Patient is alert, oriented x 3, equal unlabored respirations, skin warm/dry/pink. Vital Signs: 11:00 BP 169 / 81; Pulse 81; Resp 18; Temp 97.7; Pulse Ox 99% ; Pain 0/10; bp 13:38 BP 160 / 81; Pulse 94; Resp 16; Pulse Ox 98% on R/A; iw 11:00 Pain Scale: Adult bp ED Course: 10:55 Patient arrived in ED. im 10:56 Giovani Mcleod MD is Attending Physician. yonny 10:56 Arm band placed on Patient placed in an exam room, on a stretcher. bp 10:57 Triage completed. bp 11:04 Britney Magallanes, RN is Primary Nurse. iw 11:15 Inserted saline lock: 20 gauge in left antecubital area, using aseptic technique. iw 12:00 Provided Education on: CT scan. iw 12:01 XRAY Chest (1 view) In Process Unspecified. EDMS 12:34 CT Chest For PE Angio In Process Unspecified. EDMS 12:59 Patient has correct armband on for positive identification. iw 13:57 Joe Madrigal MD is Referral Physician. yonny 14:22 IV discontinued, intact, bleeding controlled, No redness/swelling at site. Pressure zm dressing applied. 14:26 No provider procedures requiring assistance completed. iw 14:26 IV discontinued, intact, bleeding controlled, No redness/swelling at site. Pressure iw dressing applied. Administered Medications: 11:52 Drug: NS 0.9% IV 1000 ml Route: IV; Rate: 1 bolus; Site: left antecubital; iw 13:00 Follow up: IV Status: Completed infusion iw 11:52 Drug: Famotidine IVP 20 mg Route: IVP; Site: left antecubital; iw 12:30 Follow up: Response: No adverse reaction iw 11:52 Drug: MethylPrednisoLONE IVP 125 mg Route: IVP; Site: left antecubital; iw 12:30 Follow up: Response: No adverse reaction iw 11:52 Drug: predniSONE PO 60 mg Route: PO; iw 12:15 Follow up: Response: No adverse reaction iw 11:52 Drug: Levalbuterol Inhalation 3.75 mg Route: Inhalation; iw 11:52 Drug: Ipratropium Inhalation Aerosol 0.5 mg Route: Inhalation; iw Medication: 11:05 VIS not applicable for this client. iw Outcome: 13:57 Discharge ordered by MD. blancas 14:26 Discharged to home ambulatory. iw 14:26 Condition: good 14:26 Discharge instructions given to patient, Instructed on discharge instructions, follow up and referral plans. medication usage, Demonstrated understanding of instructions, follow-up care, medications, Prescriptions given X 4. 14:27 Patient left the ED. iw Signatures: Dispatcher [employer] EDWV Giovani Mcleod MD MD cha Williams, Irene, RN HANNAH Xavier Blanchard RN RN bp Martinez, Zaina zm Mendoza, Itzel Corrections: (The following items were deleted from the chart) 10:57 10:56 Social history: Smoking status: Patient denies any tobacco usage or history of. bpbp 19:32 10:20 Respiratory: Onset: The symptoms/episode began/occurred December 31, the patient has iw mild shortness of breath iw 19:32 10:20 General: Appears in no apparent distress. comfortable, iw iw 19:32 10:20 Respiratory: Respiratory pattern is regular, symmetrical, iw iw
--- NOTE | 2023-02-23 13:58 | EDPHYS ---
Physician Documentation [facility] Name: Frandy Martin Age: 72 yrs Sex: Male : 1950 Arrival Date: 02/23/2023 Time: 10:54 Bed 5 Private MD: ED Physician Giovani Mcleod HPI: 02/23 11:15 This 72 yrs old Male presents to ER via Wheelchair with complaints of yonny Breathing Difficulty. 11:15 The patient has shortness of breath with light activity. Onset: The symptoms/episode yonny began/occurred 3 month(s) ago. Duration: The symptoms are continuous, and are steadily getting worse. The patient's shortness of breath has no apparent modifying factors. Associated signs and symptoms: Pertinent positives: non-productive cough, dizziness. Severity of symptoms: At their worst the symptoms were mild moderate in the emergency department the symptoms have resolved. The patient has experienced similar episodes in the past, multiple times. Historical: - Allergies: 10:56 PENICILLINS; bp - PMHx: 10:56 Hypertensive disorder; bp - Immunization history:: Adult Immunizations up to date, Client reports receiving the 2nd dose of the Covid vaccine. - Social history:: Smoking status: Patient reports the use of cigarette tobacco products, Patient/guardian denies using tobacco, Stopped _ months ago 2. ROS: 11:16 Constitutional: Negative for fever, chills, and weight loss, Eyes: Negative for injury, yonny pain, redness, and discharge, ENT: Negative for injury, pain, and discharge, Neck: Negative for injury, pain, and swelling, Cardiovascular: Negative for chest pain, palpitations, and edema, Abdomen/GI: Negative for abdominal pain, nausea, vomiting, diarrhea, and constipation, Back: Negative for injury and pain, : Negative for injury, bleeding, discharge, and swelling, MS/Extremity: Negative for injury and deformity, Skin: Negative for injury, rash, and discoloration, Neuro: Negative for headache, weakness, numbness, tingling, and seizure, Psych: Negative for depression, anxiety, suicide ideation, homicidal ideation, and hallucinations, Allergy/Immunology: Negative for hives, rash, and allergies, Endocrine: Negative for neck swelling, polydipsia, polyuria, polyphagia, and marked weight changes, Hematologic/Lymphatic: Negative for swollen nodes, abnormal bleeding, and unusual bruising. 11:16 Respiratory: Positive for cough, shortness of breath, at rest. Exam: 11:16 Constitutional: This is a well developed, well nourished patient who is awake, alert, yonny and in no acute distress. Head/Face: Normocephalic, atraumatic. Eyes: Pupils equal round and reactive to light, extra-ocular motions intact. Lids and lashes normal. Conjunctiva and sclera are non-icteric and not injected. Cornea within normal limits. Periorbital areas with no swelling, redness, or edema. ENT: Nares patent. No nasal discharge, no septal abnormalities noted. Tympanic membranes are normal and external auditory canals are clear. Oropharynx with no redness, swelling, or masses, exudates, or evidence of obstruction, uvula midline. Mucous membranes moist. Neck: Trachea midline, no thyromegaly or masses palpated, and no cervical lymphadenopathy. Supple, full range of motion without nuchal rigidity, or vertebral point tenderness. No Meningismus. Chest/axilla: Normal chest wall appearance and motion. Nontender with no deformity. No lesions are appreciated. Cardiovascular: Regular rate and rhythm with a normal S1 and S2. No gallops, murmurs, or rubs. Normal PMI, no JVD. No pulse deficits. Respiratory: Lungs have equal breath sounds bilaterally, clear to auscultation and percussion. No rales, rhonchi or wheezes noted. No increased work of breathing, no retractions or nasal flaring. Abdomen/GI: Soft, non-tender, with normal bowel sounds. No distension or tympany. No guarding or rebound. No evidence of tenderness throughout. Back: No spinal tenderness. No costovertebral tenderness. Full range of motion. Male : Normal genitalia with no discharge or lesions. Skin: Warm, dry with normal turgor. Normal color with no rashes, no lesions, and no evidence of cellulitis. MS/ Extremity: Pulses equal, no cyanosis. Neurovascular intact. Full, normal range of motion. Neuro: Awake and alert, GCS 15, oriented to person, place, time, and situation. Cranial nerves II-XII grossly intact. Motor strength 5/5 in all extremities. Sensory grossly intact. Cerebellar exam normal. Normal gait. Psych: Awake, alert, with orientation to person, place and time. Behavior, mood, and affect are within normal limits. 12:33 ECG was reviewed by the Attending Physician. [facility] Vital Signs: 11:00 BP 169 / 81; Pulse 81; Resp 18; Temp 97.7; Pulse Ox 99% ; Pain 0/10; bp 13:38 BP 160 / 81; Pulse 94; Resp 16; Pulse Ox 98% on R/A; iw 11:00 Pain Scale: Adult bp MDM: 10:56 Patient medically screened. [facility] 11:17 Differential diagnosis: Anemia Anxiety Reaction asthma, Bronchitis CHF exacerbation, yonny Chronic Obstructive Pulmonary Disease Myocardial Infarction pneumonia, reactive airway disease. Antibiotic administration: The patient is discharged and will get outpatient antibiotics, Zithromax. Differential Diagnosis: Obstructed Airway Bronchitis Influenza Upper Respiratory Infection Pharyngitis Asthma Exacerbation Viral Syndrome Pneumonia. Immunization status: Pneumococcal vaccine: within last 5 years. Influenza vaccine: within last 5 years. Data reviewed: vital signs, nurses notes, lab test result(s), EKG, radiologic studies, CT scan, plain films. Consideration of Admission/Observation Escalation of care including admission/observation considered. I considered the following discharge prescriptions or medication management in the emergency department Medications were administered in the Emergency Department. See MAR. Test considered but Not performed: Ultrasound NO ECHO , NO MRI. Care significantly affected by the following chronic conditions: Hypertension, Chronic Obstructive Pulmonary Disease. Counseling: I had a detailed discussion with the patient and/or guardian regarding the historical points, exam findings, and any diagnostic results supporting the discharge/admit diagnosis, lab results, radiology results. 02/23 11:14 Order name: Basic Metabolic Panel; Complete Time: 12: [facility] 02/23 11:14 Order name: CBC with Diff; Complete Time: 12: [facility] 02/23 11:14 Order name: LFT's; Complete Time: 12:04 [facility] 02/23 11:14 Order name: Magnesium; Complete Time: 12: [facility] 02/23 11:14 Order name: NT PRO-BNP; Complete Time: 12: [facility] 02/23 11:14 Order name: PT-INR; Complete Time: 12: [facility] 02/23 11:14 Order name: Troponin HS; Complete Time: 12: [facility] 02/23 11:15 Order name: SARS RAPID; Complete Time: 12: [facility] 02/23 11:15 Order name: Flu; Complete Time: 12: [facility] 02/23 11:14 Order name: XRAY Chest (1 view); Complete Time: 12:30 [facility] 02/23 11:14 Order name: CT Chest For PE Angio; Complete Time: 13:37 [facility] 02/23 12:30 Order name: Echo w/ Doppler [facility] 02/23 11:14 Order name: EKG; Complete Time: 11:15 [facility] 02/23 11:14 Order name: EKG - Nurse/Tech; Complete Time: 12:17 [facility] 02/23 11:14 Order name: IV Saline Lock; Complete Time: 11:30 [facility] 02/23 11:14 Order name: Labs collected and sent; Complete Time: 11:30 [facility] 02/23 11:14 Order name: O2 Per Protocol; Complete Time: :30 [facility] 02/23 11:14 Order name: O2 Sat Monitoring; Complete Time: 11:30 [facility] EC:33 Rate is 75 beats/min. Rhythm is regular. QRS [place] is Normal. NC interval is normal. QRS yonny interval is normal. QT interval is normal. No Q waves. T waves are Normal. No ST changes noted. Clinical impression: NSR w/ Non-specific ST/T Changes and No evidence of ischemia. Interpreted by me. Reviewed by me. Administered Medications: 11:52 Drug: NS 0.9% IV 1000 ml Route: IV; Rate: 1 bolus; Site: left antecubital; iw 13:00 Follow up: IV Status: Completed infusion iw 11:52 Drug: Famotidine IVP 20 mg Route: IVP; Site: left antecubital; iw 12:30 Follow up: Response: No adverse reaction iw 11:52 Drug: MethylPrednisoLONE IVP 125 mg Route: IVP; Site: left antecubital; iw 12:30 Follow up: Response: No adverse reaction iw 11:52 Drug: predniSONE PO 60 mg Route: PO; iw 12:15 Follow up: Response: No adverse reaction iw 11:52 Drug: Levalbuterol Inhalation 3.75 mg Route: Inhalation; iw 11:52 Drug: Ipratropium Inhalation Aerosol 0.5 mg Route: Inhalation; iw Disposition Summary: 02/23/23 13:57 Discharge Ordered Location: Home yonny Problem: new yonny Symptoms: have improved yonny Condition: Stable yonny Diagnosis - Dyspnea yonny - COPD/ Chronic obstructive pulmonary disease, unspecified yonny - Essential (primary) hypertension yonny Followup: yonny - With: Private Physician - When: 2 - 3 days - Reason: Recheck today's complaints, Continuance of care, Re-evaluation by your physician Followup: yonny - With: - When: 2 - 3 days - Reason: Recheck today's complaints, Re-evaluation by your physician Discharge Instructions: - Discharge Summary Sheet yonny - Chronic Bronchitis, Adult yonny - Chronic Obstructive Pulmonary Disease yonny - Heart Failure, Diagnosis yonny - Steps to Quit Smoking yonny - Health Risks of Smoking yonny - Chronic Obstructive Pulmonary Disease, [id number] yonny - Steps to Quit Smoking, [id number] yonny - Cough, Adult, [id number] yonny - Managing the Challenge of Quitting Smoking yonny - Preventing Heart Failure yonny - Heart Failure Eating Plan [facility] Forms: - Medication Reconciliation Form [facility] - Thank You Letter [facility] - Antibiotic Education yonny - Prescription Opioid Use yonny - Patient Portal Instructions [facility] - Leadership Thank You Letter [facility] Prescriptions: - albuterol sulfate 90 mcg/actuation Inhalation HFA Aerosol Inhaler - inhale 2 inhalation by INHALATION route every 4-6 hours as needed for yonny bronchospasm; administer via ventilator; 1 unit; Refills: 0, Product Selection Permitted - Albuterol Sulfate 2.5 mg /3 mL (0.083 %) Inhalation Solution for Nebulization - inhale 1 unit by NEBULIZATION route every 6-8 hours As needed; 60 unit; [facility] Refills: 0, Product Selection Permitted - Prednisone 20 mg Oral Tablet - take 2 tablets by ORAL route once daily for 5 days; 10 tablet; Refills: 0, [facility] Product Selection Permitted - Guaifenesin AC 10-100 mg/5 mL Oral Liquid - take 10 milliliters by ORAL route every 6 hours As needed; 180 milliliter; [facility] Refills: 0, Product Selection Permitted - Zithromax 500 mg Oral Tablet - take 1 tablet by ORAL route once daily for 5 days; 5 tablet; Refills: 0, [facility] Product Selection Permitted Signatures: Dispatcher [employer] Giovani Torres MD MD cha Williams, Irene, RN RN iw Peltier, Brian, RN RN bp Corrections: (The following items were deleted from the chart) 10:57 10:56 Social history: Smoking status: Patient denies any tobacco usage or history of. bpbp
[2023-02-23] MEDS ORDERED: AZITHROMYCIN 250 MG TAB ONE (14:20)
[2023-02-23 15:09] VITALS: TEMP 97.7
[2023-02-23 15:10] VITALS: BP 160/81; O2SAT 98
--- NOTE | 2023-02-24 06:45 | ECHO ---
HEIGHT: ft in WEIGHT: lb oz DATE OF STUDY: 02/23/[address]: Giovani Mcleod MD 2-DIMENSIONAL: YES M.MODE: YES DOPPLER: YES COLOR FLOW: YES TDS: YES PORTABLE: YES DEFINITY: BUBBLE STUDY: DIAGNOSIS: CONGESTIVE HEART FAILURE CARDIAC HISTORY: CATHERIZATION: NO SURGERY: NO PROSTHETIC VALVE: NO PACEMAKER: NO MEASUREMENTS (cm) DIASTOLIC (NORMALS) SYSTOLIC (NORMALS) IVSd 1.0 (0.6-1.2) LA Diam (1.9-4.0) LVEF 71% LVIDd 4.0 (3.5-5.7) LVIDs 2.4 (2.0-3.5) %FS 40% LVPWd 1.1 (0.6-1.2) Ao Diam 3.4 (2.0-3.7) 2 DIMENSIONAL ASSESSMENT: RIGHT ATRIUM: NORMAL LEFT ATRIUM: NORMAL RIGHT VENTRICLE: NORMAL LEFT VENTRICLE: NORMAL TRICUSPID VALVE: MILD TRICUSPID REGURGITATION MITRAL VALVE: NORMAL PULMONIC VALVE: NORMAL AORTIC VALVE: MILD AORTIC INSUFFICIENCY PERICARDIAL EFFUSION: NONE AORTIC ROOT: NORMAL LEFT VENTRICULAR WALL MOTION: NORMAL DOPPLER/COLOR FLOW: SEE BELOW COMMENTS: 1. NORMAL LEFT VENTRICULAR EJECTION FRACTION 60-65% WITH NORMAL WALL MOTION 2. MILD TRICUSPID REGURGITATION 3. MILD AORTIC INSUFFICIENCY TECHNOLOGIST: BRYAN BENZ
--- NOTE | 2023-02-24 15:24 | EKG ---
Test Date: 2023-02-23 Test Time: 12:11:51 Kiln Setter: CECILY MEASUREMENT RESULTS: Intervals: Rate: 75 [place]: 196 QRSD: 98 QT: 416 QTc: 464 [place]: P: 55 [place]: 196 QRS: 23 T: 33 INTERPRETIVE STATEMENTS: Sinus rhythm with occasional premature ventricular complexes Otherwise normal ECG Compared to ECG 07/07/2022 14:42:33 Ventricular premature complex(es) now present Electronically Signed On 02-24-23 15:21:28 CDT by Yoshi Galvan
== END 2023-02-23 14:27 | disposition home or self-care (01) ==
LOC: ER 10:54
DX: J44.9 Chronic obstructive pulmonary disease, unspecified (principal); I10 Essential (primary) hypertension; Z20.822 Contact with and (suspected) exposure to COVID-19; Z88.0 Allergy status to penicillin
CPT/HCPCS: 96361; 93005; 93306; 85025; 80048; 36415; 83735; 85610; 80076; 84484; 83880; 87804 ×2; 71275; 71045; 96375; 96374; 99285; 87811; Q9967; J7512; J7614; J7644; J2930; J7030